=== PATIENT | female | born 1940 | race Caucasian/White ===

== ENCOUNTER 2016-03-13 20:52 | Inpatient (IN) | payer MEDICARE, OTHER ==
[~2016-03-13] VITALS: Ht 157.5 cm; Wt 77.9 kg
[~2016-03-13 20:52] MED LIST: ACET650T98 PO; ALLO100T PO; ENOX40DI12 SQ; HYDR-3720 PO; MAGN400O4 PO
[2016-03-13] MEDS ORDERED: HYDROCODONE/APAP (5/325) TAB PO ONE (21:30)
[2016-03-13] MEDS ORDERED: SODIUM CHLORIDE 0.9% 1L BAG IV* STA (21:31)
[2016-03-13] MEDS ORDERED: LEVE100018 PO (21:43)
[2016-03-13] MEDS ORDERED: AMLO2.5T78 PO (21:43)
[2016-03-13] MEDS ORDERED: ASPI-664 PO (21:44)
[2016-03-13] MEDS ORDERED: BACTDS PO (21:44)
--- NOTE | 2016-03-13 21:49 | RADRPT ---
PROCEDURE: XR Knee. CLINICAL INDICATION: Left knee pain. Status post fall. TECHNIQUE: Three views of the left knee are available for review. COMPARISON: Left knee postop x-ray dated 12/03/2014 FINDINGS: Left knee prosthesis is identified in anatomic location. No acute fracture or dislocation is seen. Alignment is anatomic. No other abnormality is identified. Lucency along the proximal tibial metaph ysis is stable when compared to the prior x-ray. Mild soft tissue swelling medial to the proximal t ibia is identified. IMPRESSION: 1. Left knee replacement in anatomic location. 2. No acute fracture or dislocation is seen. 3. Mild soft tissue swelling medial to the proximal tibia. RPTAT: HMJB .Rg Holguin MD, MD Date Time Electronically viewed and signed by .Rg Holguin MD, on 03/13/2016 21:49 .B/
[2016-03-13 22:38] LABS: ADD UMIC YES; URINE BILIRUBIN (Dip) NEGATIVE (NEGATIVE); URINE BLOOD (Dip) TRACE (NEGATIVE); URINE COLOR LT. YELLOW (YELLOW); URINE GLUCOSE (Dip) NEGATIVE (NEGATIVE); URINE KETONES (Dip) NEGATIVE (NEGATIVE); URINE LEUKOCYTE ESTERASE (Dip) 1+ (NEGATIVE); URINE NITRITE (Dip) NEGATIVE (NEGATIVE); URINE TOTAL PROTEIN (Dip) NEGATIVE (NEGATIVE); URINE UROBILINOGEN (Dip) 0.2 E.U./dL (0.1-1.0)
[2016-03-13 22:41] LABS: HEMATOCRIT 42.2 % (37.0-47.0); HEMOGLOBIN 14.1 g/dl (12.0-16.0); MEAN CORPUSCULAR HEMOGLOBIN 30.7 pg (29.0-33.0); MEAN CORPUSCULAR HGB CONC 33.5 g/dl (32.0-37.0); MEAN CORPUSCULAR VOLUME 91.8 fl (82.0-101.0); MEAN PLATELET VOLUME 7.5 fl (7.4-10.4); PLATELET COUNT 233 10^3/UL (140-440); RED CELL DISTRIBUTION WIDTH 14.2 % (11.5-14.5); UNCORRECTED WBC 21.4 10^3/ul (4.8-10.8); WHITE BLOOD COUNT 21.4 10^3/ul (4.8-10.8)
[2016-03-13 22:42] LABS: INR 0.95; PROTIME 12.7 Sec (12.2-14.2)
[2016-03-13 22:43] LABS: CONDITION 1; LH ANALYZER COMMENTS 1; PARTIAL THROMBOPLASTIN TIME 27.5 Sec (25.0-35.0); SUSPECT 1
[2016-03-13 22:48] LABS: ALBUMIN 4.3 g/dl (3.3-4.9)
[2016-03-13 22:49] LABS: POTASSIUM 3.7 mmol/L (3.5-5.1)
[2016-03-13 22:51] LABS: ALBUMIN/GLOBULIN RATIO 1.19; BILIRUBIN,INDIRECT 0.3 mg/dl (0-1.1); BILIRUBIN,TOTAL 0.3 mg/dl (0.2-1.3); CREATININE 0.77 mg/dl (0.44-1.00); TOTAL PROTEIN 7.9 g/dl (6.1-8.1)
[2016-03-13 22:52] LABS: CALCIUM 9.5 mg/dl (8.4-10.2)
[2016-03-13 22:54] LABS: BACTERIA,URINE RARE; SQUAMOUS EPITHELIAL CELL,UR RARE; URINE RBCS 0-2 /HPF (0)
[2016-03-13 23:09] LABS: LYMPHOCYTES # 0.6 10^3/ul (0.8-2.9); MONOCYTE # 0.9 10^3/ul (0.3-0.9); PLATELET ESTIMATE PLT APPEAR ADEQUATE
[2016-03-13] MEDS ORDERED: CEFTRIAXONE 1 GM/50 ML (PMX) 50 ML IVPB ONE (23:30)
[2016-03-13] MEDS ORDERED: VANCOMYCIN 1 GM (PMX) 250 ML IVPB SCH (23:30)
--- NOTE | 2016-03-13 23:37 | RADRPT ---
PROCEDURE: XR Chest. CLINICAL INDICATION: Chest pain and sepsis TECHNIQUE: AP Portable chest. COMPARISON: 02/09/2015 chest x-ray FINDINGS: The soft tissues and bones are remarkable for bilateral acromioclavicular and glenohumeral osteoarth ropathy. Low lung volumes are present with bilateral interstitial crowding and bibasilar discoid ate lectasis. The mediastinum and heart are remarkable for mild vascular calcifications of the thoracic aorta and mild cardiomegaly.. No pneumothorax is present. IMPRESSION: 1. Low lung volumes with bilateral interstitial crowding and bibasilar discoid atelectasis. 2. Mild atherosclerotic vascular disease and cardiomegaly 3. Mild thoracic spondylosis , bilateral glenohumeral osteoarthropathy and bilateral acromioclavicu lar osteoarthropathy. RPTAT: HDC .Iris Mera MD, Date Time Electronically viewed and signed by .Iris Mera MD, on 03/13/2016 23:36 .C/
[2016-03-14] MEDS ORDERED: ACETAMINOPHEN 325 MG TAB PO ONE (01:30)
[2016-03-14] MEDS ORDERED: morphine 2 MG INJ IV ONE (01:30)
[2016-03-14] MEDS ORDERED: ONDANSETRON 4 MG INJ ONE (02:04)
[2016-03-14] MEDS ORDERED: ACETAMINOPHEN 325 MG TAB PO PRN ×2 (03:30→06:30)
[2016-03-14] MEDS ORDERED: ONDANSETRON 4 MG INJ IV PRN (03:30)
[2016-03-14 03:40] VITALS: TEMP 98.2
--- NOTE | 2016-03-14 04:00 | ERA ---
ER Documentation Chief Complaint Date/Time DATE: 03/14/16 TIME: 03:40 Chief Complaint L knee pain r/t slipped from home, no fall HPI This 75-year-old female presents to the ER with left knee pain after she slipped at home. She did not fall to the ground however she did twist her knee. She has a history orthopedic surgery with Contreras Reyna as the treating physician. She has has some mild generalized weakness and lightheadedness. States that she's had significant chills and may have had subjective fevers as well. She feels very cold currently. Denies chest pain shortness of breath prior to the slip. ROS All systems reviewed and are negative except as per history of present illness. Medications Home Meds Reported Medications Aspirin (Low Dose Aspirin) 81 Mg Tablet.dr, 81 MG PO DAILY, #30 TAB 03/13/16 Sulfamethoxazole-Trimethoprim* (Bactrim* DS) 800-160 Mg Tab, 1 TAB PO DAILY, # 10 TAB 03/13/16 Amlodipine Besylate* (Amlodipine Besylate*) 2.5 Mg Tablet, 2.5 MG PO DAILY, #30 TAB 03/13/16 Levetiracetam* (Keppra*) 1,000 Mg Tablet, 1000 MG PO BID, TAB 03/13/16 Allopurinol* (Allopurinol*) 100 Mg Tablet, 200 MG PO DAILY, TAB 02/07/15 Discontinued Reported Medications Magnesium Hydroxide* (Milk Of Magnesia*) 400 Mg/5 Ml Oral.susp, 30 ML PO Q24H for CONSTIPATION, ML 02/07/15 Acetaminophen* (Acetaminophen* 8 Hour) 650 Mg Tablet.sa, 650 MG PO Q4 Y for PAIN AND OR ELEVATED TEMP, TAB.SA 02/07/15 Hydrocodone Bit-Acetaminophen* ([place]*) 7.5-325 Tablet, 1 TAB PO Q6 for PAIN, TAB 02/07/15 Enoxaparin Sodium (Enoxaparin Sodium) 40 Mg/0.4 Ml Syringe, 40 MG SQ DAILY 02/07/15 Allergies Allergies: Coded Allergies: Penicillins (Verified Allergy, Severe, RASH, 03/13/16) PMhx/Soc History of Surgery: Yes (post left knee surgery nov 2012) Hx Neurological Disorder: No Hx Respiratory Disorders: No (pt is currently intubated) Hx Cardiac Disorders: Yes (hpt) Hx Psychiatric Problems: No Hx Miscellaneous Medical Probl: No Hx Alcohol Use: No Hx Substance Use: No Hx Tobacco Use: No Smoking Status: Unknown if ever smoked Physical Exam Vitals Vital Signs Date Time Temp Pulse Resp B/P Pulse Ox O2 Delivery O2 Flow Rate FiO2 03/14/16 00:36 99.1 114 19 153/64 95 Room Air 03/13/16 23:00 105 18 152/73 97 03/13/16 22:30 104 18 148/63 97 03/13/16 22:01 111 20 137/105 94 03/13/16 21:30 105 15 136/80 98 03/13/16 21:23 106 138/68 03/13/16 20:54 97.6 108 18 139/76 94 Physical Exam Const: [] Mild distress, appears uncomfortable Head: Atraumatic Eyes: Normal Conjunctiva and EOMI, PRL ENT: Normal External Ears, Nose and Mouth. Neck: Full range of motion..~ No meningismus. Resp: Clear to auscultation bilaterally Cardio: regular tachycardia, no murmurs Abd: Soft, non tender, non distended. Normal bowel sounds Skin: No petechiae or rashes Back: No midline or flank tenderness Ext: No cyanosis, left knee with mild edema as well as 1.5 a 1 cm ulceration over the soft tissue of the patella that was covered in a Band-Aid with mild purulent material. There is very slight surrounding erythema and calor. Neur: Awake and alert and oriented 3, no focal deficits. Psych: Normal Mood and Affect Result Diagram: 03/13/16220903/13/16 2210 Results 24 hrs Laboratory Tests Test 03/13/16 22:10 03/13/16 23:25 03/14/16 01:50 Activated Partial Thromboplast Time 27.5Sec Alanine Aminotransferase (ALT/SGPT) 19IU/L Albumin 4.3g/dl Albumin/Globulin Ratio 1.19 Alkaline Phosphatase 115IU/L Anion Gap 18 Aspartate Amino Transf (AST/SGOT) 21IU/L Band Neutrophils % 4.0% Blood Urea Nitrogen 11mg/dl Calcium Level 9.5mg/dl Carbon Dioxide Level 26mmol/L Chloride Level 99mmol/L Creatinine 0.77mg/dl Direct Bilirubin 0.00mg/dl Globulin 3.60g/dl Glucose Level 108mg/dl Hematocrit 42.2% Hemoglobin 14.1g/dl INR International Normalized Ratio 0.95 Indirect Bilirubin 0.3mg/dl Lactic Acid Level 1.5mmol/L 1.0mmol/L 1.8mmol/L Lymphocytes # 0.610^3/ul Lymphocytes % 3.0% Mean Corpuscular Hemoglobin 30.7pg Mean Corpuscular Hemoglobin Concent 33.5g/dl Mean Corpuscular Volume 91.8fl Mean Platelet Volume 7.5fl Monocytes # 0.910^3/ul Monocytes % 4.0% Neutrophils # 19.010^3/ul Neutrophils % 89.0% Platelet Count 15962^3/UL Platelet Estimate PLT APPEAR ADEQUATE Potassium Level 3.7mmol/L Prothrombin Time 12.7Sec Prothrombin Time Ratio 1.0 Red Blood Count 4.6010^6/ul Red Cell Distribution Width 14.2% Sodium Level 139mmol/L Total Bilirubin 0.3mg/dl Total Protein 7.9g/dl Urine Bacteria RARE Urine Bilirubin NEGATIVE Urine Clarity CLEAR Urine Color LT. YELLOW Urine Glucose NEGATIVE% Urine Hemoglobin TRACE Urine Ketones NEGATIVE Urine Leukocyte Esterase 1+ Urine Microscopic RBC 0-2/HPF Urine Microscopic WBC 5-10/HPF Urine Nitrite NEGATIVE Urine Specific [place] 1.015 Urine Squamous Epithelial Cells RARE Urine Total Protein NEGATIVE Urine Urobilinogen 0.2 E.U./dL Urine pH 5.5 White Blood Count 21.410^3/ul Current Medications Medications (Trade) Dose Ordered Sig/Andres Route PRN Reason Start Time Stop Time Status Last Admin Dose Admin Acetaminophen/ Hydrocodone Bitart ([place] (5/325)) 1 tab ONCE ONCE PO 03/13/16 21:30 03/13/16 21:31 DC Sodium Chloride 2270 ml 2,270 ml BOLUS OVER 2 HOURS STAT IV* 03/13/16 21:31 03/13/16 21:33 DC 03/13/16 22:28 Ceftriaxone Sodium 50 ml @ 100 mls/hr ONCE ONCE IVPB 03/13/16 23:30 03/13/16 23:59 DC 03/13/16 23:06 Vancomycin HCl (Vancocin) 250 ml @ 125 mls/hr ONCE IVPB 03/13/16 23:30 03/14/16 01:29 DC 03/14/16 00:20 Acetaminophen (Tylenol Tab) 650 mg ONCE ONCE PO 03/14/16 01:30 03/14/16 01:31 DC 03/14/16 01:23 Morphine Sulfate (morphine) 2 mg ONCE ONCE IV 03/14/16 01:30 03/14/16 01:31 DC 03/14/16 02:07 Ondansetron HCl (Zofran Inj) 4 mg STK-MED ONCE .ROUTE 03/14/16 02:04 03/14/16 02:05 DC Ondansetron HCl (Zofran Inj) 4 mg ER BRIDGE PRN IV NAUSEA AND/OR VOMITING 03/14/16 03:30 03/15/16 03:29 Acetaminophen (Tylenol Tab) 650 mg ER BRIDGE PRN PO MILD PAIN/FEVER 03/14/16 03:30 03/15/16 03:29 Procedures/MDM UTI with sepsis and 75-year-old female. Persistent tachycardia after fluid administration over blood pressures is stable. Patient twisted her left knee and now has recurred difficulty ambulating on it and lives alone. She has a chronic ulceration that she says has not changed much. Her sepsis may be related to some soft tissue cellulitis that is been chronic. Patient is on chronic Bactrim for this ulceration. I have low suspicion for septic joint as the patient did not have any change in her knee status until she twisted her knee. Treated with vancomycin and Rocephin for her sepsis. The sepsis diagnosis was made at 1044 after the labs returned with a very high white blood cell count. Admitting her to telemetry because of her persistent tachycardia for treatment of sepsis. She also likely need physical therapy consult and possibly a knee MRI. I spoke with Dr. Asher who will be admitting the patient to telemetry. 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 No other arrhythmias Chest x-ray interpretation: I see no acute process. No widened mediastinum, no infiltrate, no pulmonary edema, no pneumothorax, no fractures Left knee interpretation by myself: See no acute process: The hardware in place , degenerative joint disease, no acute fracture dislocation. Critical care time 32 minutes: This includes treatment of sepsis from multiple sources, careful fluid and menstruation, early antibiotic administration, chart review, discussion with admitting doctor and patient, multiple visits the patient's bedside to reassess status Departure Diagnosis: Primary Impression: Sepsis secondary to UTI Additional Impressions: Strain of knee and leg, left Tachycardia Cellulitis, leg Condition: Serious ROBERT DOVE DO Mar 14, 2016 03:51
[2016-03-14 05:30] VITALS: Ht 157.5 cm; Wt 77.9 kg
[2016-03-14 05:46] VITALS: BP 118/55; PULSE 94; RESP 20
--- NOTE | 2016-03-14 05:55 | HP ---
Date/Time of Note Date/Time of Note DATE: 03/14/16 TIME: 05:24 Assessment/Plan VTE Prophylaxis VTE Prophylaxis Intervention: LMWH Lines/Catheters Urinary Cath still in place: Yes Reason Cath still needed: other (indicate) Assessment/Plan Assessment/Plan 75yo s/p loss of balance with no loss of consciousness managed for 1. Sepsis 2/2 the following 2. L knee cellulitis r/o septic joint 3. Probable UTI 4. HTN: fairly good controlled 5. Seizure Episode on keppra 6. Gout: controlled PLAN admit / Orthopedic consult / cultures of blood, synovial fluid and urine. Patient would benefit from Knee tap prior to continuation of abx, I have spoken with Dr Reyna and he agrees, but she has refused anyone else tapping the knee apart from Dr Reyna. I have explained the reason for this and the benefits, but she is adamant. Hence will continue Empiric abx for now, await Ortho review and recommendations. In the interim, resume all other home meds, and provide pain control/ antiemetics/ antipyretics/ supportive care as needed. Prophylaxis: Lovenox and Pepcid Plan of care has been discussed with patient, questions answered and patient has verbalized understanding. HPI/ROS Admit Date/Time Admit Date/Time Mar 14, 2016 at 03:26 Hx of Present Illness PRESENTING COMPLAINT: fall, inability to walk HISTORY OF PRESENTING COMPLAINT: Eliud Momin is a 75-year-old female with a past medical history of high blood pressure, seizure disorder and bilateral knee replacements. 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 She had had right knee done back in 2012, and had left knee done sometime in 2014. She had to have a revision to the left knee with mesh placement done by Dr. Jose L Reyna in late 2014. She has been on Bactrim therapy since the surgery, however she states this was given prophylactically and does not think she has ever had an infection to her L knee. She does have a chronic wound just above the joint and in her mid leg, but she says this is being closely monitored by Dr Reyna. Earlier today, she was sitting in a chair and about to stand up with her walker as she usually does when she thinks her foot got caught and she fell back in her chair twisting her knee. She was unable to ambulate after that and hence she was brought to ER. In ER she was found to be mildly septic with significant leucocytosis with bandemia and tachycardic with subjective chills, but she has been on chronic abx therapy which might be blunting her symptoms. Her urine was also mildly suggestive of an infection. She is being admitted for further workup and management. The patient is adamant that no other orthopedic surgeon review her except Dr Reyna and will have only him tap her joint as well. ROS Constitutional: chills, fatigue, No nausea, No poor po Eyes: no complaints ENT: no complaints Cardiovascular: No chest pain, No lightheadedness, No palpitations Gastrointestinal: no complaints Musculoskeletal: bone/joint pain, restricted range of motion, swelling Psychological: anxiety PMH/Family/Social Past Medical History * seizure x 13 jan 2015 on keppra * Gout Medical History: hypertension Past Surgical History * Apollo Knee replacement + revision L knee Family History Significant Family History: no pertinent family hx Social History * Lives alone Alcohol Use: none Smoking Status: Never smoker Drug Use: none Exam/Review of Systems Vital Signs Vitals Vital Signs Date Time Temp Pulse Resp B/P Pulse Ox O2 Delivery O2 Flow Rate FiO2 03/14/16 03:40 98.2 98 16 129/69 97 Room Air Exam Constitutional: alert, oriented Psych: anxiety Head: atraumatic, normocephalic Eyes: PERRL, No icteric ENMT: mucosa pink and moist Neck: non-tender, supple Respiratory: clear to auscultation, normal air movement Cardiovascular: regular rate and rhythm, No murmurs/extra sounds Gastrointestinal: bowel sounds, non-tender, soft Genitourinary - Female: other (deffered) Neurological: nl mental status, nl speech, No focal weakness Additional Comments Her L knee is slightly more swollen than the R with overlying cellulitis and the presence of a scabbed wound just superiomedial to the patellar. She has another wound anterior to the hanks in the mid leg on the L as well. There's no significant pedal edema and she has pain with active / passive movement of the LLE only. At rest, she is somewhat comfortable. Labs Result Diagram: 03/13/16220903/13/162209 Medications Medications Current Medications Allopurinol (Zyloprim) 200 mg DAILY PO ; Start 03/14/16 at 09:00 Amlodipine Besylate (Norvasc) 2.5 mg DAILY PO ; Start 03/14/16 at 09:00 Aspirin (Halfprin) 81 mg DAILY PO ; Start 03/14/16 at 09:00 Levetiracetam (Keppra) 1,000 mg BID PO ; Start 03/14/16 at 09:00 Procedures Procedures Laboratory Tests Test 03/13/16 22:10 03/13/16 23:25 03/14/16 01:50 Activated Partial Thromboplast Time 27.5Sec Alanine Aminotransferase (ALT/SGPT) 19IU/L Albumin 4.3g/dl Albumin/Globulin Ratio 1.19 Alkaline Phosphatase 115IU/L Anion Gap 18 Aspartate Amino Transf (AST/SGOT) 21IU/L Band Neutrophils % 4.0% Blood Urea Nitrogen 11mg/dl Calcium Level 9.5mg/dl Carbon Dioxide Level 26mmol/L Chloride Level 99mmol/L Creatinine 0.77mg/dl Direct Bilirubin 0.00mg/dl Globulin 3.60g/dl Glucose Level 108mg/dl Hematocrit 42.2% Hemoglobin 14.1g/dl INR International Normalized Ratio 0.95 Indirect Bilirubin 0.3mg/dl Lactic Acid Level 1.5mmol/L 1.0mmol/L 1.8mmol/L Lymphocytes # 0.610^3/ul Lymphocytes % 3.0% Mean Corpuscular Hemoglobin 30.7pg Mean Corpuscular Hemoglobin Concent 33.5g/dl Mean Corpuscular Volume 91.8fl Mean Platelet Volume 7.5fl Monocytes # 0.910^3/ul Monocytes % 4.0% Neutrophils # 19.010^3/ul Neutrophils % 89.0% Platelet Count 06430^3/UL Platelet Estimate PLT APPEAR ADEQUATE Potassium Level 3.7mmol/L Prothrombin Time 12.7Sec Prothrombin Time Ratio 1.0 Red Blood Count 4.6010^6/ul Red Cell Distribution Width 14.2% Sodium Level 139mmol/L Total Bilirubin 0.3mg/dl Total Protein 7.9g/dl Urine Bacteria RARE Urine Bilirubin NEGATIVE Urine Clarity CLEAR Urine Color LT. YELLOW Urine Glucose NEGATIVE% Urine Hemoglobin TRACE Urine Ketones NEGATIVE Urine Leukocyte Esterase 1+ Urine Microscopic RBC 0-2/HPF Urine Microscopic WBC 5-10/HPF Urine Nitrite NEGATIVE Urine Specific [place] 1.015 Urine Squamous Epithelial Cells RARE Urine Total Protein NEGATIVE Urine Urobilinogen 0.2 E.U./dL Urine pH 5.5 White Blood Count 21.410^3/ul PROCEDURE: XR Knee. CLINICAL INDICATION: Left knee pain. Status post fall. TECHNIQUE: Three views of the left knee are available for review. COMPARISON: Left knee postop x-ray dated 12/03/2014 FINDINGS: Left knee prosthesis is identified in anatomic location. No acute fracture or dislocation is seen. Alignment is anatomic. No other abnormality is identified. Lucency along the proximal tibial metaphysis is stable when compared to the prior x-ray. Mild soft tissue swelling medial to the proximal tibia is identified. IMPRESSION: 1. Left knee replacement in anatomic location. 2. No acute fracture or dislocation is seen. 3. Mild soft tissue swelling medial to the proximal tibia. RPTAT: HMJB .Rg Holguin MD, MD Date Time Electronically viewed and signed by .Rg Holguin MD, on 03/13/2016 21:49 PROCEDURE: XR Chest. CLINICAL INDICATION: Chest pain and sepsis TECHNIQUE: AP Portable chest. COMPARISON: 02/09/2015 chest x-ray FINDINGS: The soft tissues and bones are remarkable for bilateral acromioclavicular and glenohumeral osteoarthropathy. Low lung volumes are present with bilateral interstitial crowding and bibasilar discoid atelectasis. The mediastinum and heart are remarkable for mild vascular calcifications of the thoracic aorta and mild cardiomegaly.. No pneumothorax is present. IMPRESSION: 1. Low lung volumes with bilateral interstitial crowding and bibasilar discoid atelectasis. 2. Mild atherosclerotic vascular disease and cardiomegaly 3. Mild thoracic spondylosis , bilateral glenohumeral osteoarthropathy and bilateral acromioclavicular osteoarthropathy. RPTAT: HDC .Iris Mera MD, Date Time Electronically viewed and signed by .Iris Mera MD, on 03/13/2016 23: 36 GUALBERTO SOLANO Mar 14, 2016 05:35
[2016-03-14] MEDS ORDERED: HYDROCODONE/APAP (5/325) TAB PO PRN (06:00)
[2016-03-14] MEDS ORDERED: VANCOMYCIN IV PER PHARMACY XX SCH (06:00)
[2016-03-14 08:00] VITALS: BP 120/57; PULSE 94; RESP 16
[2016-03-14 08:10] LABS: POTASSIUM 3.8 mmol/L (3.5-5.1)
[2016-03-14 08:12] LABS: CREATINE KINASE 74 IU/L (23-200)
[2016-03-14 08:13] LABS: CREATININE 0.57 mg/dl (0.44-1.00)
[2016-03-14 08:14] LABS: CALCIUM 8.3 mg/dl (8.4-10.2)
[2016-03-14 08:23] LABS: CK-MB 0.34 ng/ml (0.0-2.4)
[2016-03-14 08:31] LABS: TROPONIN-I < 0.012 ng/ml (0.00-0.12)
[2016-03-14] MEDS: FAMOTIDINE 20 MG TAB PO SCH (08:58)
[2016-03-14] MEDS: DOCUSATE SODIUM 100 MG CAP PO SCH ×2 (08:58→20:17)
[2016-03-14] MEDS: ALLOPURINOL 100 MG TAB PO SCH (08:58)
[2016-03-14] MEDS: LEVETIRACETAM 500 MG TAB PO SCH ×2 (08:58→20:17)
[2016-03-14] MEDS: AMLODIPINE 2.5 MG TAB PO SCH (08:59)
[2016-03-14] MEDS ORDERED: ASPIRIN (EC) 81 MG TAB PO SCH (09:00)
[2016-03-14] MEDS ORDERED: CIPROFLOXACIN 400MG/D5W 200 ML IVPB SCH (09:00)
[2016-03-14] MEDS ORDERED: ENOXAPARIN 40 MG/0.4 ML SYG SC SCH (09:00)
[2016-03-14] MEDS: morphine 2 MG INJ IV PRN ×2 (09:29→16:09)
[2016-03-14] MEDS ORDERED: CEFTRIAXONE 2 GM/50 ML (PMX) 50 ML IVPB SCH (11:00)
--- NOTE | 2016-03-14 13:56 | PN ---
Date/Time of Note Date/Time of Note DATE: 03/14/16 TIME: 13:51 Assessment/Plan VTE Prophylaxis VTE Prophylaxis Intervention: other Lines/Catheters IV Catheter Type (from Nrsg): Peripheral IV Urinary Cath still in place: Yes Reason Cath still needed: skin wounds contaminated by urine Assessment/Plan Chief Complaint/Hosp Course A/P 1) Lt knee cellulitis; ro septic joint; stable. for ortho & id eval. cont iv atb; hold asa/lovenox for potential aspiration. 2) Chr DJD? 3) Seizure dz 4) SIRS 5) Gout- consider acute process 6) Lt hanks chr wound 7) Htn Problems: Subjective 24 Hr Interval Summary Free Text/Dictation S- anxious, wants to be transferred to [facility] [place] no present fever/chills. mod lt knee pain. Exam/Review of Systems Vital Signs Vitals Vital Signs Date Time Temp Pulse Resp B/P Pulse Ox O2 Delivery O2 Flow Rate FiO2 03/14/16 08:00 98.0 94 16 120/57 94 03/14/16 03:40 Room Air Intake and Output 03/13/16 03/13/16 03/14/16 15:00 23:00 07:00 Intake Total 240 ml Output Total 1250 ml Balance -1010 ml Exam Constitutional: alert Respiratory: clear to auscultation Cardiovascular: regular rate and rhythm Gastrointestinal: non-tender (nd; no r r g), soft Extremities: other (lt leg -tender knee joint line; some edema. minimal warmth. diminshed rom.) Results Result Diagram: 03/13/16 2210 03/14/16 0635 Results 24 hrs Laboratory Tests Test 03/13/16 22:10 03/13/16 23:25 03/14/16 01:50 03/14/16 06:35 Activated Partial Thromboplast Time 27.5 Alanine Aminotransferase (ALT/SGPT) 19 Albumin 4.3 Albumin/Globulin Ratio 1.19 Alkaline Phosphatase 115 Anion Gap 18 H 17 H Aspartate Amino Transf (AST/SGOT) 21 Band Neutrophils % 4.0 Blood Urea Nitrogen 11 9 Calcium Level 9.5 8.3 L Carbon Dioxide Level 26 24 Chloride Level 99 108 Creatinine 0.77 0.57 Direct Bilirubin 0.00 Globulin 3.60 H Glucose Level 108 93 Hematocrit 42.2 # Hemoglobin 14.1 # INR International Normalized Ratio 0.95 Indirect Bilirubin 0.3 Lactic Acid Level 1.5 1.0 1.8 Lymphocytes # 0.6 L Lymphocytes % 3.0 L Mean Corpuscular Hemoglobin 30.7 Mean Corpuscular Hemoglobin Concent 33.5 Mean Corpuscular Volume 91.8 Mean Platelet Volume 7.5 Monocytes # 0.9 Monocytes % 4.0 Neutrophils # 19.0 H Neutrophils % 89.0 H Platelet Count 233 # Platelet Estimate PLT APPEAR ADEQUATE Potassium Level 3.7 3.8 Prothrombin Time 12.7 Prothrombin Time Ratio 1.0 Red Blood Count 4.60 # Red Cell Distribution Width 14.2 Sodium Level 139 145 H Total Bilirubin 0.3 Total Protein 7.9 Urine Bacteria RARE Urine Bilirubin NEGATIVE Urine Clarity CLEAR Urine Color LT. YELLOW Urine Glucose NEGATIVE Urine Hemoglobin TRACE Urine Ketones NEGATIVE Urine Leukocyte Esterase 1+ H Urine Microscopic RBC 0-2 Urine Microscopic WBC 5-10 Urine Nitrite NEGATIVE Urine Specific [place] 1.015 Urine Squamous Epithelial Cells RARE Urine Total Protein NEGATIVE Urine Urobilinogen 0.2 E.U./dL Urine pH 5.5 White Blood Count 21.4 #H Creatine Kinase 74 Creatine Kinase Index 0.5 Creatinine Kinase MB (Mass) 0.34 Magnesium Level 1.7 Troponin I < 0.012 Medications Medications Current Medications Allopurinol (Zyloprim) 200 mg DAILY PO Last administered on 03/14/16 08:58; Admin Dose 200 MG; Start 03/14/16 at 09:00 Amlodipine Besylate (Norvasc) 2.5 mg DAILY PO Last administered on 03/14/16at 08:59; Admin Dose 2.5 MG; Start 03/14/16 at 09:00 Aspirin (Halfprin) 81 mg DAILY PO Last administered on 03/14/16 08:57; Admin Dose 81 MG; Start 03/14/16 at 09:00 Levetiracetam 1000 mg 1,000 mg BID PO Last administered on 03/14/16 08:58; Admin Dose 1,000 MG; Start 03/14/16 at 09:00 Ceftriaxone Sodium 50 ml @ 100 mls/hr Q24H IVPB Last administered on 10:57; Admin Dose 100 MLS/HR; Start 03/14/16 at 11:00 Ciprofloxacin/ Dextrose (Cipro Ivpb) 200 ml @ 200 mls/hr Q12 IVPB Last administered on 12/31/16at 08:57; Admin Dose 200 MLS/HR; Start 03/14/16 at 09: 00 Enoxaparin Sodium (Lovenox) 40 mg DAILY SC Last administered on 03/14/16at 09: 23; Admin Dose 40 MG; Start 03/14/16 at 09:00 Famotidine (Pepcid) 20 mg DAILY PO Last administered on 03/14/16at 08:58; Admin Dose 20 MG; Start 03/14/16 at 09:00 Morphine Sulfate (morphine) 2 mg Q4H PRN IV pain Last administered on at 09:29; Admin Dose 2 MG; Start 03/14/16 at 06:00 Acetaminophen/ Hydrocodone Bitart ([place] (5/325)) 1 tab Q6H PRN PO pain; Start 03/14/16 at 06:00 Docusate Sodium (Colace) 100 mg BID PO Last administered on 03/14/16at 08:58; Admin Dose 100 MG; Start 03/14/16 at 09:00 Acetaminophen 650 mg 650 mg Q6H PRN PO PAIN AND OR ELEVATED TEMP; Start at 06:30 Vancomycin HCl (Vancocin) 250 ml @ 125 mls/hr Q24H IVPB ; Start 03/14/16 at 18 :00 AMANDA CARRASQUILLO MD Mar 14, 2016 13:56
[2016-03-14] MEDS ORDERED: HYDROCODONE/APAP (10/325) TAB PO PRN (14:00)
[2016-03-14] MEDS ORDERED: ACET325T33 PO (14:14)
--- NOTE | 2016-03-14 16:45 | CONS ---
Date/Time of Note Date/Time of Note DATE: 03/14/16 TIME: 16:32 Assessment/Plan Assessment/Plan Additional Assessment/Plan Assessment: 1. Complicated orthopedic repair of left TKR. Uncertain if there is a chronic infection in the hardware given the use of chronic bactrim suppression therapy. It is unlikely that this represents an acute infection because of the rapidity of onset and the paucity of findings on physical exam to support a rapidly progressive infection. It is more likely that the joint has suffered trauma from the twisting action during the fall, rather than a new acute infection. I cannot rule out an exacerbation of chronic infection. Clearly the joint needs to be tapped for culture, WBC, etc. Evaluation by orthopedics is also required. Temperature to 99 last night is likely due to the inflammation rather than infection. 2. Patient is without symptoms of UTI. She is not likely to have this. 3. Seizure d/o on Keppra. 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 Will avoid for now, if need coverage for resistant GPC we can use daptomycin. RECOMMENDATIONS: 1. Would suggest discontinuation of antibiotics at this time. 2. Needs aspiration of joint for CBC with diff and culture as soon as is feasible 3. Needs evaluation by orthopedics; can obtain MRI pending evaluation. 4. Monitor clinically off antibiotics overnight. 5. Follow-up on pending blood cultures. Consultation Date/Type/Reason Admit Date/Time Mar 14, 2016 at 03:26 Date of Consultation: Mar 14, 2016 Type of Consultation: Infectious Diseases Reason for Consultation Possible Septic Joint Hx of Present Illness Ms Kline is a 75y/o female with bilateral knee replacements who was admitted after potentially injuring her left knee. The patient had a complicated left knee surgical history with the original TKR resulting in tear then a mesh repair of some sort was completed this year. The patient was progressing well apparently and the day prior to admission walked and worked with PT for over an hour; the most she had in some time. The next day she was not sore and there were no new issues. In the evening she got up from her chair and fell back into it after tripping on the walker and twisted her knee while doing so. She was BIB ambulance to the ED and there was concern for an infection. Per the patient she has been on bactrim since the repair surgery. it is not clear if an infection was found, presumed or just concern for it with the hardware. She notes intermittent drainage from the knee that is generally brown. This has been followed by Dr. Reyna her orthopedist and apparently no significant concern for infection. The knee is painful now and swollen. There is more pain than normal. The patient denies N, V, D, HALL, myalgia, arthralgia, complaints , back pain. Negative on a 14 point review of systems except as noted in the HPI Eyes: no complaints ENT: no complaints Cardiovascular: No chest pain, No lightheadedness, No palpitations Gastrointestinal: no complaints Musculoskeletal: bone/joint pain, restricted range of motion, swelling Psychological: anxiety Past Medical History gout, no recent activity Medical History: hypertension Past Surgical History As per HPI Family History Significant Family History: no pertinent family hx Social History Alcohol Use: none Smoking Status: Never smoker Drug Use: none Exam/Review of Systems Vital Signs Vitals Vital Signs Date Time Temp Pulse Resp B/P Pulse Ox O2 Delivery O2 Flow Rate FiO2 03/14/16 08:00 98.0 94 16 120/57 94 03/14/16 03:40 Room Air Intake and Output 03/13/16 03/13/16 03/14/16 15:00 23:00 07:00 Intake Total 240 ml Output Total 1250 ml Balance -1010 ml Exam Constitutional: alert, oriented, well developed Psych: nl mood/affect, no complaints Head: atraumatic, normocephalic Eyes: EOMI, PERRL, nl conjunctiva, nl lids, nl sclera ENMT: nl external ears & nose, nl lips & teeth, nl nasal mucosa & septum Neck: non-tender, supple Respiratory: clear to auscultation, normal air movement Cardiovascular: nl pulses, regular rate and rhythm Gastrointestinal: nl liver, spleen, non-tender, soft Genitourinary - Female: other (sanchez present) Extremities: edema (RLE), normal pulses Neurological: CORPORATE TREASURY ANALYST II-XII intact, nl mental status, nl speech, nl strength Lymph: nl lymph nodes Additional Comments RLE with normal appearing surgical incision and with good ROM w/o pain. LLE with fluid in knee joint and warmth of joint, but no significant erythema. There is pain extending medially and superiorly that patient states is normal, but knee pain is worse than normal. A large scab has come off of the patellar region and there is some fibrinous exudate in the area where it was, but there is no discharge. No crepitus and no fluctuance within the soft tissue is appreciated. Unable to walk at this time due to pain Results Result Diagram: 03/13/16 2210 03/14/16 0635 Results 24 hrs Laboratory Tests Test 03/13/16 22:10 03/13/16 23:25 03/14/16 01:50 03/14/16 06:35 Activated Partial Thromboplast Time 27.5 Alanine Aminotransferase (ALT/SGPT) 19 Albumin 4.3 Albumin/Globulin Ratio 1.19 Alkaline Phosphatase 115 Anion Gap 18 H 17 H Aspartate Amino Transf (AST/SGOT) 21 Band Neutrophils % 4.0 Blood Urea Nitrogen 11 9 Calcium Level 9.5 8.3 L Carbon Dioxide Level 26 24 Chloride Level 99 108 Creatinine 0.77 0.57 Direct Bilirubin 0.00 Globulin 3.60 H Glucose Level 108 93 Hematocrit 42.2 # Hemoglobin 14.1 # INR International Normalized Ratio 0.95 Indirect Bilirubin 0.3 Lactic Acid Level 1.5 1.0 1.8 Lymphocytes # 0.6 L Lymphocytes % 3.0 L Mean Corpuscular Hemoglobin 30.7 Mean Corpuscular Hemoglobin Concent 33.5 Mean Corpuscular Volume 91.8 Mean Platelet Volume 7.5 Monocytes # 0.9 Monocytes % 4.0 Neutrophils # 19.0 H Neutrophils % 89.0 H Platelet Count 233 # Platelet Estimate PLT APPEAR ADEQUATE Potassium Level 3.7 3.8 Prothrombin Time 12.7 Prothrombin Time Ratio 1.0 Red Blood Count 4.60 # Red Cell Distribution Width 14.2 Sodium Level 139 145 H Total Bilirubin 0.3 Total Protein 7.9 Urine Bacteria RARE Urine Bilirubin NEGATIVE Urine Clarity CLEAR Urine Color LT. YELLOW Urine Glucose NEGATIVE Urine Hemoglobin TRACE Urine Ketones NEGATIVE Urine Leukocyte Esterase 1+ H Urine Microscopic RBC 0-2 Urine Microscopic WBC 5-10 Urine Nitrite NEGATIVE Urine Specific [place] 1.015 Urine Squamous Epithelial Cells RARE Urine Total Protein NEGATIVE Urine Urobilinogen 0.2 E.U./dL Urine pH 5.5 White Blood Count 21.4 #H Creatine Kinase 74 Creatine Kinase Index 0.5 Creatinine Kinase MB (Mass) 0.34 Magnesium Level 1.7 Troponin I < 0.012 Medications Medications Current Medications Allopurinol (Zyloprim) 200 mg DAILY PO Last administered on 03/14/16at 08:58; Admin Dose 200 MG; Start 03/14/16 at 09:00 Amlodipine Besylate (Norvasc) 2.5 mg DAILY PO Last administered on 03/14/16 08:59; Admin Dose 2.5 MG; Start 03/14/16 at 09:00 Levetiracetam 1000 mg 1,000 mg BID PO Last administered on 03/14/16 08:58; Admin Dose 1,000 MG; Start 03/14/16 at 09:00 Ceftriaxone Sodium 50 ml @ 100 mls/hr Q24H IVPB Last administered on 10:57; Admin Dose 100 MLS/HR; Start 03/14/16 at 11:00 Ciprofloxacin/ Dextrose (Cipro Ivpb) 200 ml @ 200 mls/hr Q12 IVPB Last administered on 03/14/16 08:57; Admin Dose 200 MLS/HR; Start 03/14/16 at 09: 00 Famotidine (Pepcid) 20 mg DAILY PO Last administered on 03/14/16 08:58; Admin Dose 20 MG; Start 03/14/16 at 09:00 Morphine Sulfate (morphine) 2 mg Q4H PRN IV pain Last administered on 16:09; Admin Dose 2 MG; Start 03/14/16 at 06:00 Docusate Sodium (Colace) 100 mg BID PO Last administered on 03/14/16 08:58; Admin Dose 100 MG; Start 03/14/16 at 09:00 Acetaminophen 650 mg 650 mg Q6H PRN PO PAIN AND OR ELEVATED TEMP; Start at 06:30 Vancomycin HCl (Vancocin) 250 ml @ 125 mls/hr Q24H IVPB ; Start 03/14/16 at 18 :00 Acetaminophen/ Hydrocodone Bitart ([place] (10/325)) 1 tab Q4H PRN PO PAIN; Start 03/14/16 at 14:00 FIOR JEFF Mar 14, 2016 16:44
[2016-03-14] MEDS ORDERED: VANCOMYCIN 1 GM in NS 250 ML IVPB SCH (18:00)
[2016-03-14 20:05] VITALS: BP 113/56; PULSE 91; RESP 20
[2016-03-15 06:16] LABS: BASOPHILS % 0.2 % (0.0-2.0); EOSINOPHILS # 0.1 10^3/ul (0.0-0.5); EOSINOPHILS % 0.7 % (0.0-7.0); HEMATOCRIT 35.3 % (37.0-47.0); LYMPHOCYTES # 1.5 10^3/ul (0.8-2.9); LYMPHOCYTES % 12.1 % (15.0-51.0); MEAN CORPUSCULAR HEMOGLOBIN 31.3 pg (29.0-33.0); MEAN CORPUSCULAR HGB CONC 33.9 g/dl (32.0-37.0); MEAN CORPUSCULAR VOLUME 92.3 fl (82.0-101.0); MEAN PLATELET VOLUME 7.7 fl (7.4-10.4); MONOCYTES % 7.8 % (0.0-11.0); NEUTROPHIL # 10.1 10^3/ul (1.6-7.5); NEUTROPHILS % 79.2 % (39.0-77.0); PLATELET COUNT 213 10^3/UL (140-440); RED BLOOD COUNT 3.83 10^6/ul (4.20-5.40); RED CELL DISTRIBUTION WIDTH 14.7 % (11.5-14.5); UNCORRECTED WBC 12.7 10^3/ul (4.8-10.8); WHITE BLOOD COUNT 12.7 10^3/ul (4.8-10.8)
[2016-03-15 06:18] LABS: PHOSPHORUS 3.3 mg/dl (2.5-4.9)
[2016-03-15 06:19] LABS: MAGNESIUM 1.8 mg/dl (1.7-2.5)
[2016-03-15 06:20] LABS: POTASSIUM 3.5 mmol/L (3.5-5.1)
[2016-03-15 06:23] LABS: CALCIUM 8.8 mg/dl (8.4-10.2); CREATININE 0.65 mg/dl (0.44-1.00)
[2016-03-15 06:50] LABS: THYROID STIMULATING HORMONE 1.16 MIU/L (0.465-4.680)
[2016-03-15 07:00] LABS: CONDITION 1; LH ANALYZER COMMENTS 1
[2016-03-15 07:47] VITALS: BP 113/58; RESP 20
[2016-03-15] MEDS: ALLOPURINOL 100 MG TAB PO SCH (08:17)
[2016-03-15] MEDS: DOCUSATE SODIUM 100 MG CAP PO SCH ×2 (08:18→20:54)
[2016-03-15] MEDS: FAMOTIDINE 20 MG TAB PO SCH (08:19)
[2016-03-15] MEDS: LEVETIRACETAM 500 MG TAB PO SCH ×2 (08:19→20:52)
[2016-03-15] MEDS: AMLODIPINE 2.5 MG TAB PO SCH (08:20)
[2016-03-15] MEDS: morphine 2 MG INJ IV PRN ×2 (09:41→21:04)
--- NOTE | 2016-03-15 11:00 | PN ---
Date/Time of Note Date/Time of Note DATE: 03/15/16 TIME: 10:57 Assessment/Plan VTE Prophylaxis VTE Prophylaxis Intervention: contraindicated (hold for aspiration) Lines/Catheters IV Catheter Type (from Nrsg): Peripheral IV Urinary Cath still in place: Yes Reason Cath still needed: skin wounds contaminated by urine Assessment/Plan Chief Complaint/Hosp Course A/P 1) Lt knee cellulitis; ro septic joint; stable. Transfer to higher level of care- w ho Lt tka, may need joint revision; unable to do here. [place] [facility] [place] Reyn[place]/ et al. Cont iv atb; hold asa/lovenox for potential aspiration. 2) Chr DJD? 3) Seizure dz 4) SIRS 5) Gout- consider acute process 6) Lt hanks chr wound 7) Htn Problems: Subjective 24 Hr Interval Summary Free Text/Dictation S- events noted. no toxicity; pain remains. Exam/Review of Systems Vital Signs Vitals Vital Signs Date Time Temp Pulse Resp B/P Pulse Ox O2 Delivery O2 Flow Rate FiO2 03/15/16 07:47 98.3 94 20 113/58 95 03/14/16 03:40 Room Air Intake and Output 03/14/16 03/14/16 03/15/16 15:00 23:00 07:00 Intake Total 250 ml 1140 ml 240 ml Output Total 1400 ml 450 ml Balance 250 ml -260 ml -210 ml Exam Constitutional: alert Respiratory: clear to auscultation Cardiovascular: regular rate and rhythm Gastrointestinal: non-tender, soft Musculoskeletal: other (mild erythema, tenderness @ lt knee w diminished rom.) Results Result Diagram: 03/15/16 0500 03/15/16 0500 Results 24 hrs Laboratory Tests Test 03/15/16 05:00 Anion Gap 15 Basophils # 0.0 Basophils % 0.2 Blood Morphology Comment Blood Urea Nitrogen 9 Calcium Level 8.8 Carbon Dioxide Level 26 Chloride Level 104 Creatinine 0.65 Eosinophils # 0.1 Eosinophils % 0.7 Glucose Level 98 Hematocrit 35.3 L Hemoglobin 12.0 Hemoglobin A1c 5.0 Lymphocytes # 1.5 Lymphocytes % 12.1 L Magnesium Level 1.8 Mean Corpuscular Hemoglobin 31.3 Mean Corpuscular Hemoglobin Concent 33.9 Mean Corpuscular Volume 92.3 Mean Platelet Volume 7.7 Monocytes # 1.0 H Monocytes % 7.8 Neutrophils # 10.1 H Neutrophils % 79.2 H Nucleated Red Blood Cells # 0.0 Nucleated Red Blood Cells % 0.0 Phosphorus Level 3.3 Platelet Count 213 Potassium Level 3.5 Red Blood Count 3.83 L Red Cell Distribution Width 14.7 H Sodium Level 141 Thyroid Stimulating Hormone (TSH) 1.160 White Blood Count 12.7 #H Medications Medications Current Medications Allopurinol (Zyloprim) 200 mg DAILY PO Last administered on 03/15/16 08:17; Admin Dose 200 MG; Start 03/14/16 at 09:00 Amlodipine Besylate (Norvasc) 2.5 mg DAILY PO Last administered on 03/15/16 08: 20; Admin Dose 2.5 MG; Start 03/14/16 at 09:00 Levetiracetam (Keppra) 1,000 mg BID PO Last administered on 03/15/16 08:19; Admin Dose 1,000 MG; Start 03/14/16 at 09:00 Famotidine (Pepcid) 20 mg DAILY PO Last administered on 03/15/16 08:19; Admin Dose 20 MG; Start 03/14/16 at 09:00 Morphine Sulfate (morphine) 2 mg Q4H PRN IV pain Last administered on 03/15/16 09:41; Admin Dose 2 MG; Start 03/14/16 at 06:00 Docusate Sodium (Colace) 100 mg BID PO Last administered on 03/15/16 08:18; Admin Dose 100 MG; Start 03/14/16 at 09:00 Acetaminophen (Tylenol Tab) 650 mg Q6H PRN PO PAIN AND OR ELEVATED TEMP; Start 03/14/16 at 06:30 Acetaminophen/ Hydrocodone Bitart ([place] (10/325)) 1 tab Q4H PRN PO PAIN; Start 03/14/16 at 14:00 AMANDA CARRASQUILLO MD Mar 15, 2016 11:00
--- NOTE | 2016-03-15 18:10 | RADRPT ---
Vent Rate: 92 bpm RR Interval: 0 msec OK Interval: 132 msec QRS Duration: 68 msec QT Interval: 370 msec QTC Interval: 457 msec P-R-T [place]: 88 - 72 - 41 degrees Normal sinus rhythm Normal ECG Electronically Signed By: Felipe Land [id number]
--- NOTE | 2016-03-15 18:10 | CONS ---
Date/Time of Note Date/Time of Note DATE: 03/15/16 TIME: 18:06 Assessment/Plan Assessment/Plan Chief Complaint/Hosp Course Ms Kline is a 75y/o female with bilateral knee replacements who was admitted after potentially injuring her left knee. The patient had a complicated left knee surgical history with the original TKR resulting in tear then a mesh repair of some sort was completed this year. The patient was progressing well apparently and the day prior to admission walked and worked with PT for over an hour; the most she had in some time. The next day she was not sore and there were no new issues. In the evening she got up from her chair and fell back into it after tripping on the walker and twisted her knee while doing so. She was BIB ambulance to the ED and there was concern for an infection. Per the patient she has been on bactrim since the repair surgery. it is not clear if an infection was found, presumed or just concern for it with the hardware. She notes intermittent drainage from the knee that is generally brown. This has been followed by Dr. Reyna her orthopedist and apparently no significant concern for infection. The knee is painful now and swollen. There is more pain than normal. The patient denies N, V, D, HALL, myalgia, arthralgia, complaints , back pain. Problems: Additional Assessment/Plan Assessment: 1. Complicated orthopedic repair of left TKR. Uncertain if there is a chronic infection in the hardware given the use of chronic bactrim suppression therapy. It is unlikely that this represents an acute infection because of the rapidity of onset and the paucity of findings on physical exam to support a rapidly progressive infection. It is more likely that the joint has suffered trauma from the twisting action during the fall, rather than a new acute infection. I cannot rule out an exacerbation of chronic infection. Clearly the joint needs to be tapped for culture, WBC, etc. Evaluation by orthopedics is also required. 2. Patient is without symptoms of UTI. She is not likely to have this. 3. Seizure d/o on Keppra. 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 Will avoid for now, if need coverage for resistant GPC we can use daptomycin. RECOMMENDATIONS: 1. Needs aspiration of joint for CBC with diff and culture as soon as is feasible 2. Needs evaluation by orthopedics; can obtain MRI pending evaluation. 3. Monitor clinically off antibiotics for now Consultation Date/Type/Reason Admit Date/Time Mar 14, 2016 at 03:26 Initial Consult Date 03/14/16 Type of Consultation: Infectious Diseases 24 HR Interval Summary Free Text/Dictation No changes. Patient not out of bed now since admission. No loose stools. Becoming frustrated awaiting transfer to [place]. No increased pain in the leg Exam/Review of Systems Vital Signs Vitals Vital Signs Date Time Temp Pulse Resp B/P Pulse Ox O2 Delivery O2 Flow Rate FiO2 03/15/16 07:47 98.3 94 20 113/58 95 03/14/16 03:40 Room Air Intake and Output 03/14/16 03/14/16 03/15/16 15:00 23:00 07:00 Intake Total 250 ml 1140 ml 240 ml Output Total 1400 ml 450 ml Balance 250 ml -260 ml -210 ml Exam Constitutional: alert, oriented, well developed Psych: nl mood/affect, no complaints Head: atraumatic, normocephalic Eyes: EOMI, PERRL, nl conjunctiva, nl lids, nl sclera ENMT: nl external ears & nose, nl lips & teeth, nl nasal mucosa & septum Neck: non-tender, supple Respiratory: clear to auscultation, normal air movement Cardiovascular: nl pulses, regular rate and rhythm Gastrointestinal: nl liver, spleen, non-tender, soft Genitourinary - Female: other (sanchez present) Extremities: edema (RLE), normal pulses Neurological: CRIME SCENE EXAMINER II-XII intact, nl mental status, nl speech, nl strength Lymph: nl lymph nodes Results Result Diagram: 03/15/16 0500 03/15/16 0500 Results 24 hrs Laboratory Tests Test 03/15/16 05:00 Anion Gap 15 Basophils # 0.0 Basophils % 0.2 Blood Morphology Comment Blood Urea Nitrogen 9 Calcium Level 8.8 Carbon Dioxide Level 26 Chloride Level 104 Creatinine 0.65 Eosinophils # 0.1 Eosinophils % 0.7 Glucose Level 98 Hematocrit 35.3 L Hemoglobin 12.0 Hemoglobin A1c 5.0 Lymphocytes # 1.5 Lymphocytes % 12.1 L Magnesium Level 1.8 Mean Corpuscular Hemoglobin 31.3 Mean Corpuscular Hemoglobin Concent 33.9 Mean Corpuscular Volume 92.3 Mean Platelet Volume 7.7 Monocytes # 1.0 H Monocytes % 7.8 Neutrophils # 10.1 H Neutrophils % 79.2 H Nucleated Red Blood Cells # 0.0 Nucleated Red Blood Cells % 0.0 Phosphorus Level 3.3 Platelet Count 213 Potassium Level 3.5 Red Blood Count 3.83 L Red Cell Distribution Width 14.7 H Sodium Level 141 Thyroid Stimulating Hormone (TSH) 1.160 White Blood Count 12.7 #H Medications Medications Current Medications Allopurinol (Zyloprim) 200 mg DAILY PO Last administered on 03/15/16 08:17; Admin Dose 200 MG; Start 03/14/16 at 09:00 Amlodipine Besylate (Norvasc) 2.5 mg DAILY PO Last administered on 03/15/16 08: 20; Admin Dose 2.5 MG; Start 03/14/16 at 09:00 Levetiracetam (Keppra) 1,000 mg BID PO Last administered on 03/15/16 08:19; Admin Dose 1,000 MG; Start 03/14/16 at 09:00 Famotidine (Pepcid) 20 mg DAILY PO Last administered on 03/15/16 08:19; Admin Dose 20 MG; Start 03/14/16 at 09:00 Morphine Sulfate (morphine) 2 mg Q4H PRN IV pain Last administered on 03/15/16 09:41; Admin Dose 2 MG; Start 03/14/16 at 06:00 Docusate Sodium (Colace) 100 mg BID PO Last administered on 03/15/16 08:18; Admin Dose 100 MG; Start 03/14/16 at 09:00 Acetaminophen (Tylenol Tab) 650 mg Q6H PRN PO PAIN AND OR ELEVATED TEMP; Start 03/14/16 at 06:30 Acetaminophen/ Hydrocodone Bitart ([place] (10325)) 1 tab Q4H PRN PO PAIN; Start 03/14/16 at 14:00 FIOR JEFF Mar 15, 2016 18:10
--- NOTE | 2016-03-15 18:11 | DS ---
DATE OF ADMISSION: 03/14/2016 DATE OF DISCHARGE: 03/15/2016 PRIMARY CARE PHYSICIAN: Unknown. SQUARE SHEAR OPERATOR: Dr. Charles Reyna Dr. ____. DIAGNOSES ON ADMISSION: 1. Mechanical fall. 2. Left knee pain. 3. History of left knee replacement. DIAGNOSES ON DISCHARGE: 1. Mechanical fall. 2. Left knee pain/history of replacement/prosthetic mesh placement/chronic pain. 3. Seizure disorder. 4. Systemic inflammatory response syndrome. 5. History of gout. 6. Hypertension. 7. Degenerative joint disease. HOSPITAL COURSE: This is a 75-year-old female with history of left knee replacement with apparently another procedure earlier this year, requiring placement of a mesh. She may be on long-term Bactri m. The patient had a mechanical fall prior to admission after, I believe, tripping over her walker. Dickson mast presented with pain, diminished range of motion, some edema with minimal erythema. She was seen b y infectious disease. Orthopedic surgery has recommended they transfer her [facility] for high level of care. She may need joint revision. The first part, I think, is to rule out septic caty int, septic prosthesis, which will require an aspiration. We will hold antibiotics and anticoagulat ion/aspirin that may impede diagnostic findings and management plan. I will reinforce this with the patient. I agree with infectious disease recommended that we should hold off antibiotics at this t ketan. There is no evidence of toxicity, fever, nausea, vomiting, uremia to further indicate this is a septic process. Potentially, this is a local degenerative injury related issue. At this time, the patient is being evaluated for transfer to [facility]. DIET: Low salt. ACTIVITY: No heavy lifting, driving, ____. ALLERGIES 1. PENICILLIN. 2. VANCOMYCIN THAT MAY BE ASSOCIATED WITH SEIZURE, WHICH I DOUBT. CODE STATUS: FULL. CONDITION: Good. BARRIERS TO DISCHARGE: None. PENDING TESTS: None. FUNCTIONAL STATUS: Awake, alert, aware of the plan of care. LABORATORY DATA: BMP unremarkable. A1c of 5. TSH of 1.1. LFTs okay. Troponin negative. Albumin of 4. INR 0.9. Urine essentially unremarkable. White cell count down from 21 to 12, H and H of 1 2 and 35, platelets of 213. Urine and blood culture negative at this time. Knee x-ray shows left k nee replacement in anatomical alignment, no acute fracture or dislocation. There is mild soft tissu e swelling medial to the proximal ____. Chest x-ray: Low lung volumes bilaterally. She has some c rowding and bilateral discoid atelectasis. Mild atherosclerotic vascular change/disease and cardiom egaly. Mild thoracic spondylosis, bilateral glenohumeral arthropathy with bilateral acromioclavicul ar osteoarthropathy. DISCHARGE MEDICATIONS: STOPPED MEDICATIONS: 1. Aspirin. 2. Bactrim. CONTINUED MEDICATIONS: 1. Allopurinol 200. 2. Norvasc 2.5. 3. Keppra 1000 b.i.d. 4. Tylenol daily. ALTERED MEDICATIONS: None. NEW MEDICATIONS: Tylenol as needed. Dictated By: AMANDA CARRASQUILLO MD AC/NTS Conf#: [id number] DID#: [id number] CC: FIOR JEFF MD; COCO REYNA MD; GUALBERTO SOLANO MD;*EndCC*
--- NOTE | 2016-03-15 18:11 | CONS ---
DATE OF ADMISSION: 03/14/2016 DATE OF CONSULTATION: CHIEF COMPLAINT: Left knee pain. HISTORY OF PRESENT ILLNESS: This is a 75-year-old female who had a previous left total knee arthroplasty performed by Dr. Contreras Reyna approximately 1 year ago. According to patient, she started developing increasing knee pain over the last week. She has been unable to ambulate. She states that she had pain with her total knee following surgery and had difficulty ambulating. She uses a walker for ambulation. She denies any recent fevers or chills. She denies any recent infections. PAST MEDICAL HISTORY: Gout, hypertension, osteoarthritis, seizure. MEDICATIONS: Please see chart. PAST SURGICAL HISTORY: Left total knee arthroplasty performed by Dr. Contreras Reyna. SOCIAL HISTORY: The patient denies tobacco, alcohol or drug use. FAMILY HISTORY: None. ALLERGIES: NO KNOWN DRUG ALLERGIES. REVIEW OF SYSTEMS: Negative except those mentioned in the HPI. PHYSICAL EXAMINATION: VITAL SIGNS: Temperature 98.0, 120/57, pulse of 94, respiratory rate of 16. GENERAL: Patient is in no acute distress. EXTREMITIES: Left knee. There are no open wounds. The previous healed incision. The knee is warm to touch. She has difficulty with range of motion due to pain. Her calf is soft, nontender. Negative Homans. She has palpable dorsalis pedis pulse. LABORATORY DATA: White blood cell count 12.7. Neutrophils 99%. IMAGING: X-rays, left knee: Two views of the left knee demonstrated a previous total knee prosthesis that is in appropriate position. Prosthesis is cemented. No fractures or dislocations are seen. ASSESSMENT AND PLAN: A 75-year-old female who is complaining of left knee pain with previous left total knee arthroplasty performed by Dr. Contreras Reyna. I explained to the patient that she will need further laboratory data including an ESR and CRP level. Depending on those values, she may require a knee aspiration to rule out an infection. I spoke to case management regarding this patient. She would like to be followed by Dr. Contreras Reyna. She does not want any intervention at this hospital. The patient may require left total knee revision if there is evidence of infection. Case management is currently speaking to [facility] regarding acceptance of patient to a higher level of care required. Dictated By: TIFFANY TIAN/ALEX Conf#: [id number] [facility]#: [id number] MTDD
[2016-03-15 19:39] VITALS: BP 126/58; RESP 14
--- NOTE | 2016-03-16 05:28 | RADRPT ---
PROCEDURE: Ultrasound examination of the right lower extremity with Doppler. CLINICAL INDICATION: Right leg pain and swelling. TECHNIQUE: Multiple sonographic images of the right lower extremity were performed with caldwell scal e and color Doppler. The patient refused to have left leg examined. COMPARISON: None. FINDINGS: The right common femoral, superficial femoral and popliteal veins demonstrate normal color flow, wav eforms, compression and response augmentation. There is no evidence of deep venous thrombosis. IMPRESSION: No evidence of deep venous thrombosis within the right lower extremity. .Sreedhar Maciel MD, Date Time Electronically viewed and signed by .Sreedhar Maciel MD, MD on 03/16/2016 05:27 .T/
[2016-03-16 06:09] LABS: BASOPHILS % 0.1 % (0.0-2.0); EOSINOPHILS # 0.2 10^3/ul (0.0-0.5); EOSINOPHILS % 1.8 % (0.0-7.0); HEMATOCRIT 36.3 % (37.0-47.0); HEMOGLOBIN 12.3 g/dl (12.0-16.0); LYMPHOCYTES # 1.3 10^3/ul (0.8-2.9); LYMPHOCYTES % 11.4 % (15.0-51.0); MEAN CORPUSCULAR HEMOGLOBIN 31.2 pg (29.0-33.0); MEAN CORPUSCULAR VOLUME 91.7 fl (82.0-101.0); MEAN PLATELET VOLUME 7.6 fl (7.4-10.4); MONOCYTE # 0.9 10^3/ul (0.3-0.9); MONOCYTES % 8.1 % (0.0-11.0); NEUTROPHIL # 8.8 10^3/ul (1.6-7.5); NEUTROPHILS % 78.6 % (39.0-77.0); PLATELET COUNT 207 10^3/UL (140-440); RED BLOOD COUNT 3.95 10^6/ul (4.20-5.40); RED CELL DISTRIBUTION WIDTH 14.1 % (11.5-14.5); UNCORRECTED WBC 11.2 10^3/ul (4.8-10.8); WHITE BLOOD COUNT 11.2 10^3/ul (4.8-10.8)
[2016-03-16 06:21] LABS: CONDITION 1
[2016-03-16 06:38] LABS: POTASSIUM 3.5 mmol/L (3.5-5.1)
[2016-03-16 06:41] LABS: CREATININE 0.62 mg/dl (0.44-1.00)
[2016-03-16 06:42] LABS: CALCIUM 8.7 mg/dl (8.4-10.2)
[2016-03-16 07:54] VITALS: BP 122/66; RESP 16
[2016-03-16] MEDS: LEVETIRACETAM 500 MG TAB PO SCH ×2 (08:29→20:27)
[2016-03-16] MEDS: DOCUSATE SODIUM 100 MG CAP PO SCH ×2 (08:29→20:28)
[2016-03-16] MEDS: ALLOPURINOL 100 MG TAB PO SCH (08:30)
[2016-03-16] MEDS: FAMOTIDINE 20 MG TAB PO SCH (08:30)
[2016-03-16] MEDS: AMLODIPINE 2.5 MG TAB PO SCH (08:30)
--- NOTE | 2016-03-16 11:34 | CONS ---
Date/Time of Note Date/Time of Note DATE: 03/16/16 TIME: 11:29 Assessment/Plan Assessment/Plan Chief Complaint/Hosp Course Assessment: 1. Complicated orthopedic repair of left TKR. Uncertain if there is a chronic infection in the hardware given the use of chronic bactrim suppression therapy. It is unlikely that this represents an acute infection because of the rapidity of onset and the paucity of findings on physical exam to support a rapidly progressive infection. It is more likely that the joint has suffered trauma from the twisting action during the fall, rather than a new acute infection. I cannot rule out an exacerbation of chronic infection. Clearly the joint needs to be tapped for culture, WBC, etc. Evaluation by orthopedics is also required. 2. Patient is without symptoms of UTI. She is not likely to have this. 3. Seizure d/o on Keppra. 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 Will avoid for now, if need coverage for resistant GPC we can use daptomycin. Problems: Additional Assessment/Plan recommendations - Pt's RN informed that a bed is not available yet at [facility]. we recommend diagnostic arthrocentesis, MRI once she get there - continue to monitor without antibiotics at this time management d/w Pt and her RN Consultation Date/Type/Reason Admit Date/Time Mar 14, 2016 at 03:26 Initial Consult Date 03/14/16 Type of Consultation: Infectious Diseases 24 HR Interval Summary Constitutional: no complaints Detailed Summary Eyes: no complaints ENT: no complaints Respiratory: no complaints Cardiovascular: no complaints Gastrointestinal: no complaints Genitourinary: other (FC) Musculoskeletal: bone/joint pain (chronic L knee pain) Skin: laceration (LLE) Neurologic: no complaints Exam/Review of Systems Vital Signs Vitals Vital Signs Date Time Temp Pulse Resp B/P Pulse Ox O2 Delivery O2 Flow Rate FiO2 03/16/16 07:54 98.5 90 16 122/66 95 03/14/16 03:40 Room Air Intake and Output 03/15/16 03/15/16 03/16/16 15:00 23:00 07:00 Intake Total 960 ml 1360 ml Output Total 1300 ml 600 ml Balance -340 ml 760 ml Exam Constitutional: alert, oriented, well developed Musculoskeletal: other (L knee is s/p TKA, no swelling/fluctuance noted), No joint tenderness, No swelling Skin: other (superficial laceration with scab on the LLE) Results Result Diagram: 03/16/16 0511 03/16/16 0511 Results 24 hrs Laboratory Tests Test 03/16/16 05:11 Anion Gap 14 Basophils # 0.0 Basophils % 0.1 Blood Urea Nitrogen 12 Calcium Level 8.7 Carbon Dioxide Level 28 Chloride Level 104 Creatinine 0.62 Eosinophils # 0.2 Eosinophils % 1.8 Glucose Level 97 Hematocrit 36.3 L Hemoglobin 12.3 Lymphocytes # 1.3 Lymphocytes % 11.4 L Mean Corpuscular Hemoglobin 31.2 Mean Corpuscular Hemoglobin Concent 34.0 Mean Corpuscular Volume 91.7 Mean Platelet Volume 7.6 Monocytes # 0.9 Monocytes % 8.1 Neutrophils # 8.8 H Neutrophils % 78.6 H Nucleated Red Blood Cells # 0.0 Nucleated Red Blood Cells % 0.0 Platelet Count 207 Potassium Level 3.5 Red Blood Count 3.95 L Red Cell Distribution Width 14.1 Sodium Level 142 White Blood Count 11.2 H Medications Medications Current Medications Allopurinol (Zyloprim) 200 mg DAILY PO Last administered on 03/16/16 08:30; Admin Dose 200 MG; Start 03/14/16 at 09:00 Amlodipine Besylate (Norvasc) 2.5 mg DAILY PO Last administered on 03/16/16 08: 30; Admin Dose 2.5 MG; Start 03/14/16 at 09:00 Levetiracetam (Keppra) 1,000 mg BID PO Last administered on 03/16/16 08:29; Admin Dose 1,000 MG; Start 03/14/16 at 09:00 Famotidine (Pepcid) 20 mg DAILY PO Last administered on 03/16/16 08:30; Admin Dose 20 MG; Start 03/14/16 at 09:00 Morphine Sulfate (morphine) 2 mg Q4H PRN IV pain Last administered on 03/15/16 21:04; Admin Dose 2 MG; Start 03/14/16 at 06:00 Docusate Sodium (Colace) 100 mg BID PO Last administered on 03/16/16 08:29; Admin Dose 100 MG; Start 03/14/16 at 09:00 Acetaminophen (Tylenol Tab) 650 mg Q6H PRN PO PAIN AND OR ELEVATED TEMP; Start 03/14/16 at 06:30 Acetaminophen/ Hydrocodone Bitart ([place] (10/325)) 1 tab Q4H PRN PO PAIN; Start 03/14/16 at 14:00 SIOBHAN BATES M.D. Mar 16, 2016 11:34
[2016-03-16 19:38] VITALS: BP 122/68; RESP 16
--- NOTE | 2016-03-16 23:19 | PN ---
Date/Time of Note Date/Time of Note DATE: 03/16/16 TIME: 23:19 Assessment/Plan VTE Prophylaxis VTE Prophylaxis Intervention: SCD's Lines/Catheters IV Catheter Type (from Nrsg): Peripheral IV Urinary Cath still in place: Yes Reason Cath still needed: other (indicate) (left knee pain, difficulty ambulaton) Assessment/Plan Assessment/Plan IMPRESSION 1. Mechanical fall. 2. Left knee pain/history of replacement/prosthetic mesh placement/chronic pain. 3. Seizure disorder. 4. Systemic inflammatory response syndrome. 5. History of gout. 6. Hypertension. 7. Degenerative joint disease. PLAN Cont current medical mgmt will start physical therapy awaiting transfer to OSH to be evaluated by her orthopedic Surgeon Subjective 24 Hr Interval Summary Free Text/Dictation pr concerened about left knee and asking to be transferred to OSH so that she can be seen by her primary orthopedic doctor Exam/Review of Systems Vital Signs Vitals Vital Signs Date Time Temp Pulse Resp B/P Pulse Ox O2 Delivery O2 Flow Rate FiO2 03/16/16 19:38 98.4 95 16 122/68 94 03/14/16 03:40 Room Air Intake and Output 03/15/16 03/15/16 03/16/16 15:00 23:00 07:00 Intake Total 960 ml 1360 ml Output Total 1300 ml 600 ml Balance -340 ml 760 ml Exam Constitutional: alert, oriented Head: atraumatic, normocephalic Eyes: EOMI, PERRL Neck: non-tender, supple Respiratory: clear to auscultation, normal air movement Cardiovascular: other (tachycardic with regular rhythm) Gastrointestinal: non-tender, soft Extremities: other (left knee with eythema and warmth. non tender) Results Result Diagram: 03/16/16 0511 03/16/16 0511 Results 24 hrs Laboratory Tests Test 03/16/16 05:11 03/16/16 14:50 Anion Gap 14 Basophils # 0.0 Basophils % 0.1 Blood Urea Nitrogen 12 Calcium Level 8.7 Carbon Dioxide Level 28 Chloride Level 104 Creatinine 0.62 Eosinophils # 0.2 Eosinophils % 1.8 Glucose Level 97 Hematocrit 36.3 L Hemoglobin 12.3 Lymphocytes # 1.3 Lymphocytes % 11.4 L Mean Corpuscular Hemoglobin 31.2 Mean Corpuscular Hemoglobin Concent 34.0 Mean Corpuscular Volume 91.7 Mean Platelet Volume 7.6 Monocytes # 0.9 Monocytes % 8.1 Neutrophils # 8.8 H Neutrophils % 78.6 H Nucleated Red Blood Cells # 0.0 Nucleated Red Blood Cells % 0.0 Platelet Count 207 Potassium Level 3.5 Red Blood Count 3.95 L Red Cell Distribution Width 14.1 Sodium Level 142 White Blood Count 11.2 H C-Reactive Protein 19.1 H Erythrocyte Sedimentation Rate 81 H Medications Medications Current Medications Allopurinol (Zyloprim) 200 mg DAILY PO Last administered on 03/16/16 08:30; Admin Dose 200 MG; Start 03/14/16 at 09:00 Amlodipine Besylate (Norvasc) 2.5 mg DAILY PO Last administered on 03/16/16 08: 30; Admin Dose 2.5 MG; Start 03/14/16 at 09:00 Levetiracetam (Keppra) 1,000 mg BID PO Last administered on 03/16/16 20:27; Admin Dose 1,000 MG; Start 03/14/16 at 09:00 Famotidine (Pepcid) 20 mg DAILY PO Last administered on 03/16/16 08:30; Admin Dose 20 MG; Start 03/14/16 at 09:00 Morphine Sulfate (morphine) 2 mg Q4H PRN IV pain Last administered on 03/15/16 21:04; Admin Dose 2 MG; Start 03/14/16 at 06:00 Docusate Sodium (Colace) 100 mg BID PO Last administered on 03/16/16 20:28; Admin Dose 100 MG; Start 03/14/16 at 09:00 Acetaminophen (Tylenol Tab) 650 mg Q6H PRN PO PAIN AND OR ELEVATED TEMP; Start 03/14/16 at 06:30 Acetaminophen/ Hydrocodone Bitart ([place] (10/325)) 1 tab Q4H PRN PO PAIN; Start 03/14/16 at 14:00 MINGO GAITAN MD Mar 16, 2016 23:19
[2016-03-17 05:28] LABS: BASOPHILS % 0.3 % (0.0-2.0); EOSINOPHILS # 0.2 10^3/ul (0.0-0.5); EOSINOPHILS % 2.3 % (0.0-7.0); HEMATOCRIT 36.9 % (37.0-47.0); HEMOGLOBIN 12.6 g/dl (12.0-16.0); LYMPHOCYTES # 1.5 10^3/ul (0.8-2.9); LYMPHOCYTES % 13.6 % (15.0-51.0); MEAN CORPUSCULAR HEMOGLOBIN 31.4 pg (29.0-33.0); MEAN CORPUSCULAR HGB CONC 34.2 g/dl (32.0-37.0); MEAN CORPUSCULAR VOLUME 91.7 fl (82.0-101.0); MEAN PLATELET VOLUME 7.5 fl (7.4-10.4); MONOCYTE # 0.9 10^3/ul (0.3-0.9); MONOCYTES % 8.3 % (0.0-11.0); NEUTROPHIL # 8.2 10^3/ul (1.6-7.5); NEUTROPHILS % 75.5 % (39.0-77.0); PLATELET COUNT 243 10^3/UL (140-440); RED BLOOD COUNT 4.02 10^6/ul (4.20-5.40); RED CELL DISTRIBUTION WIDTH 13.7 % (11.5-14.5); UNCORRECTED WBC 10.9 10^3/ul (4.8-10.8); WHITE BLOOD COUNT 10.9 10^3/ul (4.8-10.8)
[2016-03-17 05:36] LABS: CONDITION 1
[2016-03-17 07:35] VITALS: BP 120/80; RESP 18
--- NOTE | 2016-03-17 08:50 | CONS ---
Date/Time of Note Date/Time of Note DATE: 03/17/16 TIME: 08:46 Assessment/Plan Assessment/Plan Chief Complaint/Hosp Course assessment/impression: - acute exacerbation of L knee pain due to a fall prior to admission, probably a mechanical problem due to trauma but infection must be ruled out too. -h/o complicated orthopedic repair of L TKR in the past - h/o seizure, on Keppra - h/o seizures from vancomycin - PCN allergy Problems: Additional Assessment/Plan recommendations - we recommend imaging of L knee and diagnostic arthrocentesis - continue to monitor without antibiotics at this time Consultation Date/Type/Reason Admit Date/Time Mar 14, 2016 at 03:26 Initial Consult Date 03/14/16 Type of Consultation: Infectious Diseases 24 HR Interval Summary Free Text/Dictation No bed at [place] yet. Pt's RN and case management attempted to contact Dr. Reyna. Constitutional: no complaints Detailed Summary Eyes: no complaints ENT: no complaints Respiratory: no complaints Cardiovascular: no complaints Gastrointestinal: no complaints Genitourinary: other (FC) Musculoskeletal: bone/joint pain (chronic L knee pain, unchanged) Exam/Review of Systems Vital Signs Vitals Vital Signs Date Time Temp Pulse Resp B/P Pulse Ox O2 Delivery O2 Flow Rate FiO2 03/17/16 07:35 98.4 90 18 120/80 93 03/14/16 03:40 Room Air Intake and Output 03/16/16 03/16/16 03/17/16 15:00 23:00 07:00 Intake Total 1500 ml 800 ml Output Total 850 ml 750 ml Balance 650 ml 50 ml Exam Constitutional: alert, oriented, well developed Psych: no complaints Head: atraumatic, normocephalic Eyes: EOMI, nl conjunctiva, nl lids Neck: supple Musculoskeletal: other (s/p L TKR, min edema lateral L knee but no fluctuance, induration, acute erythema) Extremities: No edema Results Result Diagram: 03/17/16 0430 03/16/16 0511 Results 24 hrs Laboratory Tests Test 03/16/16 14:50 03/17/16 04:30 C-Reactive Protein 19.1 H Erythrocyte Sedimentation Rate 81 H Basophils # 0.0 Basophils % 0.3 Eosinophils # 0.2 Eosinophils % 2.3 Hematocrit 36.9 L Hemoglobin 12.6 Lymphocytes # 1.5 Lymphocytes % 13.6 L Mean Corpuscular Hemoglobin 31.4 Mean Corpuscular Hemoglobin Concent 34.2 Mean Corpuscular Volume 91.7 Mean Platelet Volume 7.5 Monocytes # 0.9 Monocytes % 8.3 Neutrophils # 8.2 H Neutrophils % 75.5 Nucleated Red Blood Cells # 0.0 Nucleated Red Blood Cells % 0.0 Platelet Count 243 Red Blood Count 4.02 L Red Cell Distribution Width 13.7 White Blood Count 10.9 H Medications Medications Current Medications Allopurinol (Zyloprim) 200 mg DAILY PO Last administered on 03/16/16 08:30; Admin Dose 200 MG; Start 03/14/16 at 09:00 Amlodipine Besylate (Norvasc) 2.5 mg DAILY PO Last administered on 03/16/16 08: 30; Admin Dose 2.5 MG; Start 03/14/16 at 09:00 Levetiracetam (Keppra) 1,000 mg BID PO Last administered on 03/16/16 20:27; Admin Dose 1,000 MG; Start 03/14/16 at 09:00 Famotidine (Pepcid) 20 mg DAILY PO Last administered on 03/16/16 08:30; Admin Dose 20 MG; Start 03/14/16 at 09:00 Morphine Sulfate (morphine) 2 mg Q4H PRN IV pain Last administered on 03/15/16 21:04; Admin Dose 2 MG; Start 03/14/16 at 06:00 Docusate Sodium (Colace) 100 mg BID PO Last administered on 03/16/16 20:28; Admin Dose 100 MG; Start 03/14/16 at 09:00 Acetaminophen (Tylenol Tab) 650 mg Q6H PRN PO PAIN AND OR ELEVATED TEMP; Start 03/14/16 at 06:30 Acetaminophen/ Hydrocodone Bitart ([place] (10/325)) 1 tab Q4H PRN PO PAIN; Start 03/14/16 at 14:00 SIOBHAN BATES M.D. Mar 17, 2016 08:50
[2016-03-17] MEDS: FAMOTIDINE 20 MG TAB PO SCH (09:28)
[2016-03-17] MEDS: LEVETIRACETAM 500 MG TAB PO SCH ×2 (09:28→20:47)
[2016-03-17] MEDS: ALLOPURINOL 100 MG TAB PO SCH (09:28)
[2016-03-17] MEDS: DOCUSATE SODIUM 100 MG CAP PO SCH ×2 (09:28→20:15)
[2016-03-17] MEDS: AMLODIPINE 2.5 MG TAB PO SCH (09:29)
--- NOTE | 2016-03-17 14:30 | CONS ---
DATE OF ADMISSION: 03/14/2016 DATE OF CONSULTATION: 03/17/2016 TYPE OF CONSULTATION: Orthopedic. CHIEF COMPLAINT: Knee wound. REASON FOR CONSULTATION: Performed at the request of Dr. Sreedhar Ruiz. HISTORY OF PRESENT ILLNESS: The patient is well known to me. She underwent left total knee replaceme nt and suffered complication of patellar tendon rupture. I then took her to surgery for revision of left total knee replacement and did a patellar tendon reconstruction with mesh. She then had wound c omplication break down and underwent plastic surgery for flap coverage of her wound. She was on supp ressive antibiotics daily with Bactrim for lifelong suppression per Dr. Moulton. I had seen her fairly r ecently in the office. She was doing well walking, ambulating with no knee pain. She presented to [facility], she was doing very well and walking and had no knee pain, no stomach com plaints. She did have a chronic eschar anterior knee and medial leg, which was slowly decreasing ov er time. On the opinion of her plastic surgeon and myself recommended continued observation and was on antibiotic suppression with Bactrim, lifelong. Recently she fell and twisted her knee awkwardly a nd was admitted to the hospital for concern of urinary tract infection or knee infection. She has be en on antibiotics IV which are now being held for aspiration. PAST MEDICAL HISTORY: Gout, hypertension, osteoarthritis, seizure. MEDICATIONS: Reviewed. SURGICAL HISTORY: Multiple knee surgeries. SOCIAL HISTORY: No tobacco or alcohol. FAMILY HISTORY: Reviewed, noncontributory. ALLERGIES: NO KNOWN DRUG ALLERGIES. REVIEW OF SYSTEMS: A 14 point review of systems was performed. PHYSICAL EXAMINATION: EXTREMITIES: Left knee has superficial wound dehiscence of the proximal aspect of the knee about 1 c m x 0.5 cm with mild erythema. No gross purulence. Granulation tissue at the base. Knee has no gross instability. She is able to straight leg raise with good strength, mild warmth. X-rays show a left knee replacement, no migration, loosening or . Hardware in good position. LABORATORY DATA: Labs were reviewed, shows a white count of 22.1 on admission, down to 10.9 today. E SR 81. IMPRESSION: Superficial wound infection. No prosthesis complication. Rule out deep infection. PLAN: I ordered a knee prosthetic joint aspiration to be performed in radiology. Send the synovial f luid for a total cell count with diff, aerobic and anaerobic fungal AFB cultures. At the bedside I p erformed 2 swabs for superficial wound. Will also send those swabs for anaerobic/aerobic fungal AFB. Will plan on operative treatment and I believe in a surgical intervention to her knee will worsen h er condition ultimately. Will plan nonoperative treatment. She will require a course of IV antibioti cs to treat her knee infection followed by lifelong oral suppression. The type and length of IV anti biotics and ultimate oral supression antibiotic will be determined by her superficial swab cultures and also the upcoming deep knee aspiration. I ordered a PICC line. She should have a PICC line for l ongterm antibiotics IV. She requires an infectious disease consultation. Her IV antibiotics should b e restarted immediately after her aspiration is performed. Her knee is stable. She can be full weigh tbearing, weightbearing as tolerated with physical therapy out of bed as tolerated. No brace require d. She does not require surgical intervention. She does not require transfer to [facility]. She will likely be here a few days for her culture results of her superficial and deep cultures to come up with an antibiotic plan by infectious disease and then can be discharged home to followup [facility] as an outpatient. Also she should have local wound care. I ordered a wound care nurse consult. Dictated By: COCO GREENBERG/ALEX Conf#: [id number] DID#: [id number]
[2016-03-17] MEDS ORDERED: LIDOCAINE 1% (MPF) 5 ML VIAL ONE (15:00)
--- NOTE | 2016-03-17 15:15 | RADRPT ---
PROCEDURE: Ultrasound guided aspiration of left knee joint. CLINICAL INDICATION: History of left knee arthroplasty. Left knee joint effusion. TECHNIQUE: Prior to the procedure, informed consent was obtained. Risks including bleeding and in fection were explained to the the patient. The patient understood and was willing to proceed. A pr ocedural pause was performed. The patient's name, date of , and procedure to be performed were verified. Using local anesthetic, sterile technique and ultrasound guidance, a 21-gauge needle was advanced in to the left knee joint. 10 ml of cloudy serosanguinous fluid was aspirated. The patient tolerated the procedure well. A dressing was applied. COMPARISON: Left knee radiographs dated 03/13/2016. FINDINGS: Images demonstrate the small left knee joint effusion. Subsequent images demonstrate the needle ent ering the left knee joint. IMPRESSION: 1. Satisfactory ultrasound-guided left knee joint aspiration. RPTAT: QQ .Cole Stern MD, MD Date Time Electronically viewed and signed by .Cole Stern MD, on 03/17/2016 15:15 .R/
--- NOTE | 2016-03-17 16:00 | PN ---
Date/Time of Note Date/Time of Note DATE: 03/17/16 TIME: 15:55 Assessment/Plan VTE Prophylaxis VTE Prophylaxis Intervention: SCD's Lines/Catheters IV Catheter Type (from Nrsg): [place] Urinary Cath still in place: Yes Reason Cath still needed: other (indicate) (left knee pain) Assessment/Plan Assessment/Plan IMPRESSION 1. Mechanical fall. 2. Left knee superficial infection/ pain with history of replacement/ prosthetic mesh placement/chronic pain. 3. Seizure disorder. 4. Systemic inflammatory response syndrome. 5. History of gout. 6. Hypertension. 7. Degenerative joint disease. PLAN Seen by her primary Orthopedist with plan for arthrocentesis. Abx to be started after procedure. ID already following pt Cont current medical mgmt and pain meds as needed Physical therapy Subjective 24 Hr Interval Summary Free Text/Dictation no acute events. c/o intermittent left knee pain Exam/Review of Systems Vital Signs Vitals Vital Signs Date Time Temp Pulse Resp B/P Pulse Ox O2 Delivery O2 Flow Rate FiO2 03/17/16 07:35 98.4 90 18 120/80 93 03/14/16 03:40 Room Air Intake and Output 03/16/16 03/16/16 03/17/16 15:00 23:00 07:00 Intake Total 1500 ml 800 ml Output Total 850 ml 750 ml Balance 650 ml 50 ml Exam Constitutional: alert, oriented Head: atraumatic, normocephalic Eyes: EOMI, PERRL Neck: non-tender, supple Respiratory: clear to auscultation, normal air movement Cardiovascular: other (tachycardic with regular rhythm) Gastrointestinal: non-tender, soft Extremities: other (left knee with eythema and warmth. non tender) Results Result Diagram: 03/17/16 0430 03/16/16 0511 Results 24 hrs Laboratory Tests Test 03/17/16 04:30 Basophils # 0.0 Basophils % 0.3 Eosinophils # 0.2 Eosinophils % 2.3 Hematocrit 36.9 L Hemoglobin 12.6 Lymphocytes # 1.5 Lymphocytes % 13.6 L Mean Corpuscular Hemoglobin 31.4 Mean Corpuscular Hemoglobin Concent 34.2 Mean Corpuscular Volume 91.7 Mean Platelet Volume 7.5 Monocytes # 0.9 Monocytes % 8.3 Neutrophils # 8.2 H Neutrophils % 75.5 Nucleated Red Blood Cells # 0.0 Nucleated Red Blood Cells % 0.0 Platelet Count 243 Red Blood Count 4.02 L Red Cell Distribution Width 13.7 White Blood Count 10.9 H Medications Medications Current Medications Allopurinol (Zyloprim) 200 mg DAILY PO Last administered on 03/17/16 09:28; Admin Dose 200 MG; Start 03/14/16 at 09:00 Amlodipine Besylate (Norvasc) 2.5 mg DAILY PO Last administered on 03/17/16 09: 29; Admin Dose 2.5 MG; Start 03/14/16 at 09:00 Levetiracetam (Keppra) 1,000 mg BID PO Last administered on 03/17/16 09:28; Admin Dose 1,000 MG; Start 03/14/16 at 09:00 Famotidine (Pepcid) 20 mg DAILY PO Last administered on 03/17/16 09:28; Admin Dose 20 MG; Start 03/14/16 at 09:00 Morphine Sulfate (morphine) 2 mg Q4H PRN IV pain Last administered on 03/15/16 21:04; Admin Dose 2 MG; Start 03/14/16 at 06:00 Docusate Sodium (Colace) 100 mg BID PO Last administered on 03/17/16 09:28; Admin Dose 100 MG; Start 03/14/16 at 09:00 Acetaminophen (Tylenol Tab) 650 mg Q6H PRN PO PAIN AND OR ELEVATED TEMP; Start 03/14/16 at 06:30 Acetaminophen/ Hydrocodone Bitart ([place] (10/325)) 1 tab Q4H PRN PO PAIN; Start 03/14/16 at 14:00 MINGO GAITAN MD Mar 17, 2016 16:00
[2016-03-17 19:00] VITALS: BP 121/59; RESP 19
[2016-03-17 21:03] LABS: SYNOVIAL FLUID TYPE Left Knee; SYNOVIAL FLUID VOLUME 10 mL (0-3.5)
[2016-03-17 21:04] LABS: LYMPHOCYTES,SYNOVIAL FLUID 3; NEUTROPHILS,SYNOVIAL FLUID 95 % (0-25); SYNOVIAL FLUID CLARITY Slightly Cloudy; SYNOVIAL FLUID WBC 15360 /cmm (0-150)
[2016-03-18 07:37] VITALS: BP 115/84; RESP 18
[2016-03-18] MEDS ORDERED: LIDOCAINE 1% (MDV) 20 ML INJ SC ONE (08:00)
[2016-03-18] MEDS: DOCUSATE SODIUM 100 MG CAP PO SCH ×2 (08:15→20:09)
[2016-03-18] MEDS: ALLOPURINOL 100 MG TAB PO SCH (08:16)
[2016-03-18] MEDS: LEVETIRACETAM 500 MG TAB PO SCH ×2 (08:16→20:08)
[2016-03-18] MEDS: FAMOTIDINE 20 MG TAB PO SCH (08:16)
[2016-03-18] MEDS: AMLODIPINE 2.5 MG TAB PO SCH (08:16)
--- NOTE | 2016-03-18 09:18 | CONS ---
Date/Time of Note Date/Time of Note DATE: 03/18/16 TIME: 09:15 Assessment/Plan Assessment/Plan Chief Complaint/Hosp Course assessment/impression: - acute exacerbation of L knee pain due to a fall prior to admission, s/p diagnostic arthrocentesis 03/17/2016. WBC=15,360 with 95% neutrophils. ESR=81 on - h/o complicated orthopedic repair of L TKR in the past - h/o seizure, on Keppra - h/o seizures from vancomycin - PCN allergy - rash when she took it 40 years ago - vancomycin allergy - per Pt, she had Sz of unclear etiology and was informed by her providers at that time that it might be caused by vancomycin Problems: Additional Assessment/Plan recommendations - pending results: bacterial, fungal and AFB smear and culture - I recommend empiric IV daptomycin and meropenem while waiting for the results. Pt will probably need long-term antibiotics. - I will adjust her antibiotics based on the culture results - will check CK - Pt is allergic to penicillin and vancomycin and so her antimicrobial choices are limited. I am choosing daptomycin over linezolid because linezolid poses a risk of anemia and thrombocytopenia if given more than two weeks. - She also requested antibiotics that "do not make me sick to the stomach." I explained to her that if she has severe GI reactions, I will replace her antibiotic to a different kind. I discussed the management with Pt and answered all her questions and concerns. I also discussed the management with Pt's RN the total time I took to care for this Pt today was from 0905 to 0950 Consultation Date/Type/Reason Admit Date/Time Mar 14, 2016 at 03:26 Initial Consult Date 03/14/16 Type of Consultation: Infectious Diseases 24 HR Interval Summary Constitutional: no complaints Detailed Summary Eyes: no complaints ENT: no complaints Respiratory: no complaints Cardiovascular: no complaints Gastrointestinal: no complaints Genitourinary: no complaints Musculoskeletal: bone/joint pain (chronic L knee pain) Skin: laceration Exam/Review of Systems Vital Signs Vitals Vital Signs Date Time Temp Pulse Resp B/P Pulse Ox O2 Delivery O2 Flow Rate FiO2 03/18/16 07:37 98.3 83 18 115/84 96 Intake and Output 03/17/16 03/17/16 03/18/16 15:00 23:00 07:00 Intake Total 1340 ml 600 ml Output Total 1250 ml 1200 ml Balance 90 ml -600 ml Exam Constitutional: alert, oriented Head: atraumatic, normocephalic Eyes: nl conjunctiva, nl lids Neck: supple Musculoskeletal: swelling (L knee), No joint tenderness Extremities: No edema Results Result Diagram: 03/17/16 0430 03/16/16 0511 Results 24 hrs Laboratory Tests Test 03/17/16 15:00 Synovial Fluid Appearance Slightly Cloudy Synovial Fluid Color Synovial Fluid Crystals No crystals seen Synovial Fluid Lymphocytes 3 Synovial Fluid Monocytes 2 Synovial Fluid Neutrophils 95 H Synovial Fluid Source Left Knee Synovial Fluid Volume 10 H Synovial Fluid WBC 10863 H Medications Medications Current Medications Allopurinol (Zyloprim) 200 mg DAILY PO Last administered on 03/18/16 08:16; Admin Dose 200 MG; Start 03/14/16 at 09:00 Amlodipine Besylate (Norvasc) 2.5 mg DAILY PO Last administered on 03/18/16 08: 16; Admin Dose 2.5 MG; Start 03/14/16 at 09:00 Levetiracetam (Keppra) 1,000 mg BID PO Last administered on 03/18/16 08:16; Admin Dose 1,000 MG; Start 03/14/16 at 09:00 Famotidine (Pepcid) 20 mg DAILY PO Last administered on 03/18/16 08:16; Admin Dose 20 MG; Start 03/14/16 at 09:00 Morphine Sulfate (morphine) 2 mg Q4H PRN IV pain Last administered on 03/15/16 21:04; Admin Dose 2 MG; Start 03/14/16 at 06:00 Docusate Sodium (Colace) 100 mg BID PO Last administered on 03/18/16 08:15; Admin Dose 100 MG; Start 03/14/16 at 09:00 Acetaminophen (Tylenol Tab) 650 mg Q6H PRN PO PAIN AND OR ELEVATED TEMP; Start 03/14/16 at 06:30 Acetaminophen/ Hydrocodone Bitart ([place] (10/325)) 1 tab Q4H PRN PO PAIN; Start 03/14/16 at 14:00 SIOBHAN BATES M.D. Mar 18, 2016 09:18
[2016-03-18] MEDS: SOD CHLORIDE 0.9% IVPB SCH (12:33)
[2016-03-18] MEDS: DAPTOMYCIN IVPB SCH (12:33)
[2016-03-18] MEDS: MEROPENEM 1 GM in SOD CHLORIDE 0.9% 100 ML IVPB SCH ×2 (14:36→21:53)
--- NOTE | 2016-03-18 19:19 | PN ---
Date/Time of Note Date/Time of Note DATE: 03/18/16 TIME: 19:19 Assessment/Plan VTE Prophylaxis VTE Prophylaxis Intervention: SCD's Lines/Catheters IV Catheter Type (from Nrsg): Saline Lock Urinary Cath still in place: Yes Reason Cath still needed: other (indicate) Assessment/Plan Assessment/Plan IMPRESSION 1. Mechanical fall. 2. Left knee superficial infection/ pain with history of replacement/ prosthetic mesh placement/chronic pain. 3. Seizure disorder. 4. Systemic inflammatory response syndrome. 5. History of gout. 6. Hypertension. 7. Degenerative joint disease. PLAN will f/u result of arthrocentesis. cont Abx ID managing Cont current medical mgmt and pain meds as needed cont Physical therapy Exam/Review of Systems Vital Signs Vitals Vital Signs Date Time Temp Pulse Resp B/P Pulse Ox O2 Delivery O2 Flow Rate FiO2 03/18/16 07:37 98.3 83 18 115/84 96 Intake and Output 03/17/16 03/17/16 03/18/16 15:00 23:00 07:00 Intake Total 1340 ml 600 ml Output Total 1250 ml 1200 ml Balance 90 ml -600 ml Exam Constitutional: alert, oriented Head: atraumatic, normocephalic Eyes: EOMI, PERRL Neck: non-tender, supple Respiratory: clear to auscultation, normal air movement Cardiovascular: other (tachycardic with regular rhythm) Gastrointestinal: non-tender, soft Extremities: other (left knee with eythema and warmth. non tender) Results Result Diagram: 03/17/16 0430 03/16/16 0511 Medications Medications Current Medications Allopurinol (Zyloprim) 200 mg DAILY PO Last administered on 03/18/16 08:16; Admin Dose 200 MG; Start 03/14/16 at 09:00 Amlodipine Besylate (Norvasc) 2.5 mg DAILY PO Last administered on 03/18/16 08: 16; Admin Dose 2.5 MG; Start 03/14/16 at 09:00 Levetiracetam (Keppra) 1,000 mg BID PO Last administered on 03/18/16 08:16; Admin Dose 1,000 MG; Start 03/14/16 at 09:00 Famotidine (Pepcid) 20 mg DAILY PO Last administered on 03/18/16 08:16; Admin Dose 20 MG; Start 03/14/16 at 09:00 Morphine Sulfate (morphine) 2 mg Q4H PRN IV pain Last administered on 03/15/16 21:04; Admin Dose 2 MG; Start 03/14/16 at 06:00 Docusate Sodium (Colace) 100 mg BID PO Last administered on 03/18/16 08:15; Admin Dose 100 MG; Start 03/14/16 at 09:00 Acetaminophen (Tylenol Tab) 650 mg Q6H PRN PO PAIN AND OR ELEVATED TEMP; Start 03/14/16 at 06:30 Acetaminophen/ Hydrocodone Bitart 1 tab 1 tab Q4H PRN PO PAIN; Start 03/14/16 at 14:00 Daptomycin 465 mg/ Sodium Chloride 100 ml @ 200 mls/hr Q24H IVPB Last administered on 03/18/16 12:33; Admin Dose 200 MLS/HR; Start 03/18/16 at 11:00 Meropenem/Sodium Chloride (Merrem/NS) 100 ml @ 200 mls/hr Q8 IVPB Last administered on 03/18/16 14:36; Admin Dose 200 MLS/HR; Start 03/18/16 at 14:00 MINGO GAITAN MD Mar 18, 2016 19:19
[2016-03-18 19:40] VITALS: BP 122/61; RESP 20
[2016-03-19] MEDS: MEROPENEM 1 GM in SOD CHLORIDE 0.9% 100 ML IVPB SCH ×3 (05:44→21:36)
[2016-03-19 08:01] VITALS: BP 121/60; RESP 16
[2016-03-19] MEDS: DOCUSATE SODIUM 100 MG CAP PO SCH ×2 (09:00→21:35)
[2016-03-19] MEDS: LEVETIRACETAM 500 MG TAB PO SCH ×2 (09:44→21:35)
[2016-03-19] MEDS: FAMOTIDINE 20 MG TAB PO SCH (09:46)
[2016-03-19] MEDS: ALLOPURINOL 100 MG TAB PO SCH (09:46)
[2016-03-19] MEDS: AMLODIPINE 2.5 MG TAB PO SCH (09:47)
[2016-03-19] MEDS: DAPTOMYCIN IVPB SCH (11:57)
[2016-03-19] MEDS: SOD CHLORIDE 0.9% IVPB SCH (11:57)
--- NOTE | 2016-03-19 17:23 | CONS ---
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 WBC=15,360 with 95% neutrophils. ESR=81 on 03/16/2016 - h/o complicated orthopedic repair of L TKR in the past - h/o seizure, on Keppra - h/o seizures from vancomycin - PCN allergy - rash when she took it 40 years ago - vancomycin allergy - per Pt, she had Sz of unclear etiology and was informed by her providers at that time that it might be caused by vancomycin Problems: Additional Assessment/Plan recommendations - I will review the final results of fluid cultures - I ordered CT of abd/pel to r/o possible GI/ source of E. coli e.g. diverticulitis - I ordered CT of L knee to r/o abscess - I recommend I&D of L knee if possible - OK to d/c IV daptomycin - Pt's currently on meropenem-->will switch it to levofloxacin if the rest of cultures grow the same strain of E. coli only - Pt will need 6 weeks of antibiotic. I will comment on the antibiotic once the rest of cultures are finalized. - I recommend weekly CBC, CMP and ESR while Pt's on antibiotic I discussed the management with Pt and answered all her questions and concerns. she requested that I speak with her friend, Madeline who is a nurse and called Madeline while I was in her room. So I explained to Madeline Pt's treatment plan. I also discussed the management with Pt's RN the total time I took to care for this Pt today was from 1620 to 1710 Consultation Date/Type/Reason Admit Date/Time Mar 14, 2016 at 03:26 Initial Consult Date 03/14/16 Type of Consultation: Infectious Diseases 24 HR Interval Summary Constitutional: no complaints Detailed Summary Eyes: no complaints ENT: no complaints Respiratory: no complaints Cardiovascular: no complaints Gastrointestinal: no complaints Genitourinary: other (FC) Musculoskeletal: bone/joint pain (chronic L knee pain) Skin: no complaints Neurologic: no complaints Exam/Review of Systems Vital Signs Vitals Vital Signs Date Time Temp Pulse Resp B/P Pulse Ox O2 Delivery O2 Flow Rate FiO2 03/19/16 08:01 98.4 91 16 121/60 92 Intake and Output 03/18/16 03/18/16 03/19/16 15:00 23:00 07:00 Intake Total 1200 ml 220 ml Output Total 300 ml 700 ml Balance 900 ml -480 ml Exam Constitutional: alert, oriented, well developed Psych: nl mood/affect, no complaints Head: atraumatic, normocephalic Eyes: nl conjunctiva, nl lids ENMT: nl external ears & nose, nl nasal mucosa & septum Neck: supple Musculoskeletal: swelling (mild, of L knee) Extremities: No edema Neurological: No confused Results Result Diagram: 03/17/16 0430 03/16/16 0511 Results 24 hrs Laboratory Tests Test 03/19/16 04:48 Creatine Kinase 39 Medications Medications Current Medications Allopurinol (Zyloprim) 200 mg DAILY PO Last administered on 03/19/16 09:46; Admin Dose 200 MG; Start 03/14/16 at 09:00 Amlodipine Besylate (Norvasc) 2.5 mg DAILY PO Last administered on 03/19/16 09: 47; Admin Dose 2.5 MG; Start 03/14/16 at 09:00 Levetiracetam (Keppra) 1,000 mg BID PO Last administered on 03/19/16 09:44; Admin Dose 1,000 MG; Start 03/14/16 at 09:00 Famotidine (Pepcid) 20 mg DAILY PO Last administered on 03/19/16 09:46; Admin Dose 20 MG; Start 03/14/16 at 09:00 Morphine Sulfate (morphine) 2 mg Q4H PRN IV pain Last administered on 03/15/16 21:04; Admin Dose 2 MG; Start 03/14/16 at 06:00 Docusate Sodium (Colace) 100 mg BID PO Last administered on 03/18/16 08:15; Admin Dose 100 MG; Start 03/14/16 at 09:00 Acetaminophen (Tylenol Tab) 650 mg Q6H PRN PO PAIN AND OR ELEVATED TEMP; Start 03/14/16 at 06:30 Acetaminophen/ Hydrocodone Bitart 1 tab 1 tab Q4H PRN PO PAIN; Start 03/14/16 at 14:00 Daptomycin 465 mg/ Sodium Chloride 100 ml @ 200 mls/hr Q24H IVPB Last administered on 03/19/16 11:57; Admin Dose 200 MLS/HR; Start 03/18/16 at 11:00 Meropenem/Sodium Chloride (Merrem/NS) 100 ml @ 200 mls/hr Q8 IVPB Last administered on 03/19/16 14:57; Admin Dose 200 MLS/HR; Start 03/18/16 at 14:00 SIOBHAN BATES M.D. Mar 19, 2016 17:23
--- NOTE | 2016-03-19 18:19 | PN ---
Date/Time of Note Date/Time of Note DATE: 03/19/16 TIME: 18:17 Assessment/Plan VTE Prophylaxis VTE Prophylaxis Intervention: SCD's Lines/Catheters IV Catheter Type (from Nrsg): Saline Lock Urinary Cath still in place: Yes Reason Cath still needed: other (indicate) Assessment/Plan Assessment/Plan IMPRESSION 1. Mechanical fall. 2. Left knee superficial infection/ pain with history of replacement/ prosthetic mesh placement/chronic pain. 3. Seizure disorder. 4. Systemic inflammatory response syndrome. 5. History of gout. 6. Hypertension. 7. Degenerative joint disease. PLAN will f/u result of arthrocentesis. cont Abx ID managing Cont current medical mgmt and pain meds as needed cont Physical therapy PICC line placement pending Subjective 24 Hr Interval Summary Free Text/Dictation c/o weakness after physical therapy. also reported left knee discomfort during physical therapy Exam/Review of Systems Vital Signs Vitals Vital Signs Date Time Temp Pulse Resp B/P Pulse Ox O2 Delivery O2 Flow Rate FiO2 03/19/16 08:01 98.4 91 16 121/60 92 Intake and Output 03/18/16 03/18/16 03/19/16 15:00 23:00 07:00 Intake Total 1200 ml 220 ml Output Total 300 ml 700 ml Balance 900 ml -480 ml Exam Constitutional: alert, oriented Head: atraumatic, normocephalic Eyes: EOMI, PERRL Neck: non-tender, supple Respiratory: clear to auscultation, normal air movement Cardiovascular: other (tachycardic with regular rhythm) Gastrointestinal: non-tender, soft Extremities: other (left knee with eythema and warmth. non tender) Results Result Diagram: 03/17/16 0430 03/16/16 0511 Results 24 hrs Laboratory Tests Test 03/19/16 04:48 Creatine Kinase 39 Medications Medications Current Medications Allopurinol (Zyloprim) 200 mg DAILY PO Last administered on 03/19/16 09:46; Admin Dose 200 MG; Start 03/14/16 at 09:00 Amlodipine Besylate (Norvasc) 2.5 mg DAILY PO Last administered on 03/19/16 09: 47; Admin Dose 2.5 MG; Start 03/14/16 at 09:00 Levetiracetam (Keppra) 1,000 mg BID PO Last administered on 03/19/16 09:44; Admin Dose 1,000 MG; Start 03/14/16 at 09:00 Famotidine (Pepcid) 20 mg DAILY PO Last administered on 03/19/16 09:46; Admin Dose 20 MG; Start 03/14/16 at 09:00 Morphine Sulfate (morphine) 2 mg Q4H PRN IV pain Last administered on 03/15/16 21:04; Admin Dose 2 MG; Start 03/14/16 at 06:00 Docusate Sodium (Colace) 100 mg BID PO Last administered on 03/18/16 08:15; Admin Dose 100 MG; Start 03/14/16 at 09:00 Acetaminophen (Tylenol Tab) 650 mg Q6H PRN PO PAIN AND OR ELEVATED TEMP; Start 03/14/16 at 06:30 Acetaminophen/ Hydrocodone Bitart 1 tab 1 tab Q4H PRN PO PAIN; Start 03/14/16 at 14:00 Meropenem/Sodium Chloride (Merrem/NS) 100 ml @ 200 mls/hr Q8 IVPB Last administered on 03/19/16 14:57; Admin Dose 200 MLS/HR; Start 03/18/16 at 14:00 MINGO GAITAN MD Mar 19, 2016 18:19
[2016-03-19 20:10] VITALS: BP 123/62; RESP 16
--- NOTE | 2016-03-19 20:57 | RADRPT ---
PROCEDURE: CT scan of the abdomen and pelvis without IV contrast. CLINICAL INDICATION: Diverticulitis. TECHNIQUE: Thin section axial, coronal and sagittal images were performed through the abdomen and pelvis without contrast Radiation Dose: CTDI 17:29 mGy and DLP: 884.06 mGy-cm One of the following dose reduction techniq ues were utilized: Automated dense exposure control, adjustment of the mA and/or kV according to pa tient's size, use of iterative reconstruction technique COMPARISON: None FINDINGS: CT abdomen: Atelectasis or consolidation in the lingula and left lung base with mild volume loss. The unenhance d visualized heart and pericardium are unremarkable with atherosclerotic calcification of the aorta and coronary arteries. Mild right base dependent atelectasis. Cholelithiasis without wall thickening or pericholecystic fluid. The liver, spleen, adrenal glands, and pancreas are normal in size and attenuation without focal lesion. No evidence of intrahepatic b iliary ductal dilatation is identified. Normal appearance of the cherise hepatis. The kidneys are normal in size and contour without parenchymal abnormality. Left perinephric soft ti ssue stranding and scarring. No obstructive uropathy. Normal caliber abdominal aorta. Aortic vascular calcification. No retroperitoneal or mesenteric lymp hadenopathy or ascites. Normal caliber bowel without evidence of obstruction. Normal appearance of the bowel mesenteric. CT pelvis: Normal appendix. Sigmoid diverticulosis without evidence of diverticulitis. Calcified uterine fibro ids. Small periumbilical ventral hernia containing omental fat measuring approximately 2 cm in grea test dimension. No normal caliber bowel. No pelvic sidewall lymphadenopathy or ascites. No acute inflammatory proc ess. The bladder and remaining intrapelvic contents are unremarkable. Bones: No lytic or blastic osseous lesion. Marked multilevel degenerative lumbar endplate spurring and facet joint arthropathy with levoscoliosis and multilevel disk desiccation and endplate degenera tive changes IMPRESSION: 1. No acute intra-abdominal or intrapelvic abnormality. 2. Cholelithiasis. 3. Colonic diverticulosis without diverticulitis. 4. Atherosclerotic calcification of the aorta. 5. Left base and lingular atelectasis or consolidation. RPTAT:AAJJ J Port, Physician Date Time Electronically viewed and signed by Katie Dewey Physician on 03/19/2016 20:56 WILDA/
--- NOTE | 2016-03-19 21:20 | RADRPT ---
PROCEDURE: CT of the left knee CLINICAL INDICATION: Knee pain, swelling, concern for abscess TECHNIQUE: Axial images through the left knee without IV contrast. Coronal and sagittal reformat s. Images were interpreted at an independent PACS workstation. CTDI 81.96 mGy DLP 1725.57 mGy-cm One or more of the following dose reduction techniques were used: Automated exposure control Adjustment of the mA and / or kV according to patient size Use of iterative reconstruction technique. COMPARISON: Radiographs of the left knee dated March 13, 2016 and radiographs of the left knee December 03, 2014 . Ultrasound of the left lower extremity March 17, 2016. FINDINGS: The patient is status post total knee arthroplasty, in anatomic alignment. The bones are osteopenic . There is no definite acute fracture noting limitations due to metallic artifact and osteopenia. There is anterior soft tissue swelling and a skin defect near extending to bone overlying the patell a (sagittal 34). There is also some thinning and partial dehiscence along the anterolateral aspect of the proximal tibial metaphysis (axial 52). Osteomyelitis of the anterior patella as well as the anterior proximal tibia difficult to exclude on CT. There is a small to moderate-sized knee joint effusion with synovitis, a nonspecific finding, along with some gas in this region which may be related to the previous aspiration.. There is also made o f what appears to be a small amount of fluid tracking superiorly along the lateral aspect of the dis zurdo quadriceps tendon (axial 1) at the edge of the field of view. This could be some extension of j oint fluid though intramuscular fluid collection difficult to exclude. There are vascular calcifications. Note is made of prior muscle tissue wrapping around the proximal medial tibial metaphysis that may be related to a previous surgery. This appears to originate from the medial gastrocnemius muscle. There is subcutaneous soft tissue swelling. IMPRESSION: 1. Right knee total arthroplasty without evidence of periprosthetic fracture, noting osteopenia and metallic artifact which somewhat limits this evaluation. 2. Anterior skin defect over the patella nearly extending to bone , such that osteomyelitis at this location is difficult to exclude. There is also some cortical thinning and partial dehiscence galo g the anterolateral aspect of the proximal tibial metaphysis, with osteomyelitis not excluded at thi s location. Recommend correlation with previous operative note. 3. Small to moderate sized knee joint effusion with intra-articular gas which may be related to the recent aspiration. 4. Small amount of fluid tracking superiorly into the distal quadriceps tendon and myotendinous francia ction at the edge of the field of view. 5. Postoperative changes along the medial aspect of the proximal tibial metaphysis with transpositi on of a portion of the medial gastrocnemius along the medial/anterior aspect of the proximal tibia. 6. Subcutaneous soft tissue swelling without discrete subcutaneous fluid collection identified. RPTAT: HSRK .Skinny Sagastume MD, MD Date Time Electronically viewed and signed by .Skinny Sagastume MD, MD on 03/19/2016 21:19 .K/
[2016-03-20] MEDS: MEROPENEM 1 GM in SOD CHLORIDE 0.9% 100 ML IVPB SCH (05:24)
[2016-03-20 08:01] VITALS: BP 129/62; RESP 20
[2016-03-20] MEDS: DOCUSATE SODIUM 100 MG CAP PO SCH ×2 (09:00→20:43)
--- NOTE | 2016-03-20 09:00 | RADRPT ---
PROCEDURE: XR Chest. CLINICAL INDICATION: Check PICC line position. TECHNIQUE: Single frontal view. COMPARISON: 03/13/2016 FINDINGS: There is a right arm PICC line with the tip in the lower superior vena cava. The lungs are clear. The heart size is normal. There is calcification in the aorta consistent with atherosclerosis. There is no pleural effusion. There is no pneumothorax. IMPRESSION: 1. Satisfactory position of right arm PICC line. 2. Atherosclerosis. 3. Otherwise unremarkable study. RPTAT: QQ .Cole Stern MD, MD Date Time Electronically viewed and signed by .Cole Stern MD, MD on 03/20/2016 08:59 .R/
--- NOTE | 2016-03-20 09:01 | RADRPT ---
PROCEDURE: US guidance for PICC line CLINICAL INDICATION: PICC line placement TECHNIQUE: Multiple real-time images were acquired of the patient's arm utilizing a high resolutio n transducer. This was performed by the PICC line nurse for venous access. COMPARISON: None FINDINGS: Ultrasound guidance for PICC line placement. IMPRESSION: Ultrasound guidance for PICC line placement. RPTAT: AA .Aquiles Schneider MD, MD Date Time Electronically viewed and signed by .Aquiles Schneider MD, on 03/20/2016 09:01 .S/
--- NOTE | 2016-03-20 09:04 | CONS ---
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 WBC=15,360 with 95% neutrophils. ESR=81 on 03/16/2016. synovial fluid grew E. coli. - CT L knee report indicates possible osteomyelitis - CT abd/pel showed cholelithiasis; Pt has no GI/ symptoms - h/o complicated orthopedic repair of L TKR in the past - h/o seizure, on Keppra - h/o seizures from vancomycin - PCN allergy - rash when she took it 40 years ago - vancomycin allergy - per Pt, she had Sz of unclear etiology and was informed by her providers at that time that it might be caused by vancomycin Problems: Additional Assessment/Plan recommendations - I recommend I&D of L knee if possible - d/c meropenem; start IV ciprofloxacin 400mg q12hrs, I recommend 6 weeks. After that, Pt may benefit from long-term antibiotic for chronic suppression - I recommend weekly CBC, CMP and ESR while Pt's on antibiotic - I discussed the management with Pt and her RN Consultation Date/Type/Reason Admit Date/Time Mar 14, 2016 at 03:26 Initial Consult Date 03/14/16 Type of Consultation: Infectious Diseases 24 HR Interval Summary Constitutional: no complaints Detailed Summary Eyes: no complaints ENT: no complaints Respiratory: no complaints Cardiovascular: no complaints Gastrointestinal: no complaints Genitourinary: other (FC) Musculoskeletal: swelling (L knee (chronic)) Neurologic: no complaints Exam/Review of Systems Vital Signs Vitals Vital Signs Date Time Temp Pulse Resp B/P Pulse Ox O2 Delivery O2 Flow Rate FiO2 03/20/16 08:01 98.1 102 20 129/62 95 Intake and Output 03/19/16 03/19/16 03/20/16 15:00 23:00 07:00 Intake Total 200 ml 1360 ml 580 ml Output Total 1100 ml 650 ml Balance 200 ml 260 ml -70 ml Exam Constitutional: alert, well developed Psych: no complaints Head: atraumatic, normocephalic Eyes: nl conjunctiva, nl lids ENMT: nl external ears & nose Neck: supple Genitourinary - Female: other (FC) Musculoskeletal: swelling (L knee) Neurological: nl speech Skin: other (scabs) Results Result Diagram: 03/17/16 0430 03/16/16 0511 Medications Medications Current Medications Allopurinol (Zyloprim) 200 mg DAILY PO Last administered on 03/19/16 09:46; Admin Dose 200 MG; Start 03/14/16 at 09:00 Amlodipine Besylate (Norvasc) 2.5 mg DAILY PO Last administered on 03/19/16 09: 47; Admin Dose 2.5 MG; Start 03/14/16 at 09:00 Levetiracetam (Keppra) 1,000 mg BID PO Last administered on 03/19/16 21:35; Admin Dose 1,000 MG; Start 03/14/16 at 09:00 Famotidine (Pepcid) 20 mg DAILY PO Last administered on 03/19/16 09:46; Admin Dose 20 MG; Start 03/14/16 at 09:00 Morphine Sulfate (morphine) 2 mg Q4H PRN IV pain Last administered on 03/15/16 21:04; Admin Dose 2 MG; Start 03/14/16 at 06:00 Docusate Sodium (Colace) 100 mg BID PO Last administered on 03/19/16 21:35; Admin Dose 100 MG; Start 03/14/16 at 09:00 Acetaminophen (Tylenol Tab) 650 mg Q6H PRN PO PAIN AND OR ELEVATED TEMP; Start 03/14/16 at 06:30 Acetaminophen/ Hydrocodone Bitart 1 tab 1 tab Q4H PRN PO PAIN; Start 03/14/16 at 14:00 Meropenem/Sodium Chloride (Merrem/NS) 100 ml @ 200 mls/hr Q8 IVPB Last administered on 03/20/16 05:24; Admin Dose 200 MLS/HR; Start 03/18/16 at 14:00 SIOBHAN BATES M.D. Mar 20, 2016 09:04
[2016-03-20] MEDS: FAMOTIDINE 20 MG TAB PO SCH (09:36)
[2016-03-20] MEDS: ALLOPURINOL 100 MG TAB PO SCH (09:37)
[2016-03-20] MEDS: AMLODIPINE 2.5 MG TAB PO SCH (09:37)
[2016-03-20] MEDS: LEVETIRACETAM 500 MG TAB PO SCH ×2 (09:37→20:44)
[2016-03-20] MEDS: CIPROFLOXACIN 400MG/D5W 200 ML IVPB SCH ×2 (09:44→22:34)
[2016-03-20] MEDS: ONDANSETRON 4 MG INJ IV PRN (19:00)
[2016-03-20] MEDS ORDERED: TRIMETHOBENZAMIDE 100 MG/ML VIAL IM PRN (19:00)
[2016-03-20 19:45] VITALS: BP 125/60; RESP 20
[2016-03-20] MEDS: LOPERAMIDE 2 MG CAP PO PRN (20:44)
--- NOTE | 2016-03-20 23:25 | PN ---
Date/Time of Note Date/Time of Note DATE: 03/20/16 TIME: 23:23 Assessment/Plan VTE Prophylaxis VTE Prophylaxis Intervention: SCD's Lines/Catheters IV Catheter Type (from Nrsg): PICC Line Central line still needed: Yes Urinary Cath still in place: Yes Reason Cath still needed: other (indicate) Assessment/Plan Assessment/Plan IMPRESSION 1. Mechanical fall. 2. Left knee superficial infection/ pain with history of replacement/ prosthetic mesh placement/chronic pain. 3. Seizure disorder. 4. Systemic inflammatory response syndrome. 5. History of gout. 6. Hypertension. 7. Degenerative joint disease. PLAN will f/u result of arthrocentesis. cont Abx ID managing Cont current medical mgmt and pain meds as needed cont Physical therapy PICC line placed DISP: discharge to SNF tomorrow Subjective 24 Hr Interval Summary Free Text/Dictation c/o intermittent left knee pain Exam/Review of Systems Vital Signs Vitals Vital Signs Date Time Temp Pulse Resp B/P Pulse Ox O2 Delivery O2 Flow Rate FiO2 03/20/16 19:45 97.7 84 20 125/60 98 Intake and Output 03/19/16 03/19/16 03/20/16 15:00 23:00 07:00 Intake Total 200 ml 1360 ml 580 ml Output Total 1100 ml 650 ml Balance 200 ml 260 ml -70 ml Exam Constitutional: alert, oriented Head: atraumatic, normocephalic Eyes: EOMI, PERRL Neck: non-tender, supple Respiratory: clear to auscultation, normal air movement Cardiovascular: other (tachycardic with regular rhythm) Gastrointestinal: non-tender, soft Extremities: other (left knee with eythema and warmth. non tender) Results Result Diagram: 03/17/16 0430 03/16/16 0511 Results 24 hrs Laboratory Tests Test 03/20/16 05:10 Erythrocyte Sedimentation Rate 103 H Medications Medications Current Medications Allopurinol (Zyloprim) 200 mg DAILY PO Last administered on 03/20/16 09:37; Admin Dose 200 MG; Start 03/14/16 at 09:00 Amlodipine Besylate (Norvasc) 2.5 mg DAILY PO Last administered on 03/20/16 09: 37; Admin Dose 2.5 MG; Start 03/14/16 at 09:00 Levetiracetam (Keppra) 1,000 mg BID PO Last administered on 03/20/16 20:44; Admin Dose 1,000 MG; Start 03/14/16 at 09:00 Famotidine (Pepcid) 20 mg DAILY PO Last administered on 03/20/16 09:36; Admin Dose 20 MG; Start 03/14/16 at 09:00 Morphine Sulfate (morphine) 2 mg Q4H PRN IV pain Last administered on 03/15/16 21:04; Admin Dose 2 MG; Start 03/14/16 at 06:00 Docusate Sodium (Colace) 100 mg BID PO Last administered on 03/19/16 21:35; Admin Dose 100 MG; Start 03/14/16 at 09:00 Acetaminophen (Tylenol Tab) 650 mg Q6H PRN PO PAIN AND OR ELEVATED TEMP; Start 03/14/16 at 06:30 Acetaminophen/ Hydrocodone Bitart 1 tab 1 tab Q4H PRN PO PAIN; Start 03/14/16 at 14:00 Ciprofloxacin/ Dextrose (Cipro Ivpb) 200 ml @ 200 mls/hr Q12 IVPB Last administered on 03/20/16 22:34; Admin Dose 200 MLS/HR; Start 03/20/16 at 10:00 IV Flush (NS 10 ml) 10 ml PRN PRN IV IV PROTOCOL; Start 03/20/16 at 15:00 Ondansetron HCl (Zofran Inj) 4 mg Q6H PRN IV NAUSEA AND/OR VOMITING Last administered on 03/20/16 19:00; Admin Dose 4 MG; Start 03/20/16 at 18:55 Trimethobenzamide HCl (Tigan) 200 mg Q6H PRN IM NAUSEA AND/OR VOMITING; Start 03/20/16 at 19:00 Loperamide HCl (Imodium Cap) 2 mg QID PRN PO DIARRHEA Last administered on 20:44; Admin Dose 2 MG; Start 03/20/16 at 20:00 MINGO GAITAN MD Mar 20, 2016 23:25
[2016-03-21 08:10] VITALS: BP 134/95; RESP 18
[2016-03-21] MEDS: CIPROFLOXACIN 400MG/D5W 200 ML IVPB SCH (08:34)
[2016-03-21] MEDS: ALLOPURINOL 100 MG TAB PO SCH (08:35)
[2016-03-21] MEDS: DOCUSATE SODIUM 100 MG CAP PO SCH (08:35)
[2016-03-21] MEDS: LEVETIRACETAM 500 MG TAB PO SCH (08:35)
[2016-03-21] MEDS: FAMOTIDINE 20 MG TAB PO SCH (08:35)
[2016-03-21] MEDS: LOPERAMIDE 2 MG CAP PO PRN (08:36)
[2016-03-21] MEDS: ONDANSETRON 4 MG INJ IV PRN ×2 (08:36→16:06)
[2016-03-21] MEDS: AMLODIPINE 2.5 MG TAB PO SCH (08:36)
--- NOTE | 2016-03-21 11:01 | CONS ---
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 WBC=15,360 with 95% neutrophils. ESR=81 on 03/16/2016. synovial fluid grew E. coli. superficial swab grew E. coli, klebsiella and corynebacterium. The latter two are probable colonizers because they did not grow in the synovial fluid and the growth was scant (kleb) and rare (corynebacteria) from the skin swab - CT L knee report indicates possible osteomyelitis - CT abd/pel showed cholelithiasis; Pt has no GI/ symptoms - h/o complicated orthopedic repair of L TKR in the past - h/o seizure, on Keppra - h/o seizures from vancomycin - PCN allergy - rash when she took it 40 years ago - vancomycin allergy - per Pt, she had Sz of unclear etiology and was informed by her providers at that time that it might be caused by vancomycin Problems: Additional Assessment/Plan recommendations - I recommend IV ciprofloxacin for 6 weeks. After that, Pt may benefit from long -term antibiotic for chronic suppression - klebsiella and corynebacterium are likely colonizers as they only grew a scant /rare amount on the swab of the skin of her knee, but not out of the synovial fluid. klebdsiella is sensitive to cipro. I will give her 5 days of clindamycin to cover cellulitis/colonization of the knee due to corynebacteria (note: Pt took two days of daptomycin) - I recommend weekly CBC, CMP and ESR while Pt's on antibiotic - contact isolation because Pt's [employer] informed me that at klebsiella strains are defined ESBL positive as they are resistant to newer generation cephalosporines - f/u with Dr. Hidalgo, her regular ID physician - I discussed the management with Pt, her RN, [employer]. Informed Dr. [place] too total time I took to care for this Pt today was from 1040 to 1125 Consultation Date/Type/Reason Admit Date/Time Mar 14, 2016 at 03:26 Initial Consult Date 03/14/16 Type of Consultation: Infectious Diseases 24 HR Interval Summary Constitutional: no complaints Detailed Summary Eyes: no complaints ENT: no complaints Respiratory: no complaints Cardiovascular: no complaints Gastrointestinal: no complaints Genitourinary: no complaints Musculoskeletal: no complaints Skin: no complaints Neurologic: no complaints Exam/Review of Systems Vital Signs Vitals Vital Signs Date Time Temp Pulse Resp B/P Pulse Ox O2 Delivery O2 Flow Rate FiO2 03/21/16 08:10 97.8 96 18 134/95 93 Intake and Output 03/20/16 03/20/16 03/21/16 15:00 23:00 07:00 Intake Total 800 ml 560 ml Output Total 1000 ml 600 ml Balance -200 ml -40 ml Exam Constitutional: alert, oriented, well developed Psych: nl mood/affect, no complaints Head: atraumatic, normocephalic Eyes: EOMI, nl conjunctiva, nl lids ENMT: nl external ears & nose, nl nasal mucosa & septum Neck: supple Musculoskeletal: swelling (L knee, chronic) Extremities: edema (LLE, chronic) Skin: No rash or lesions Results Result Diagram: 03/17/16 0430 Medications Medications Current Medications Allopurinol (Zyloprim) 200 mg DAILY PO Last administered on 03/21/16 08:35; Admin Dose 200 MG; Start 03/14/16 at 09:00 Amlodipine Besylate (Norvasc) 2.5 mg DAILY PO Last administered on 03/21/16 08: 36; Admin Dose 2.5 MG; Start 03/14/16 at 09:00 Levetiracetam (Keppra) 1,000 mg BID PO Last administered on 03/21/16 08:35; Admin Dose 1,000 MG; Start 03/14/16 at 09:00 Famotidine (Pepcid) 20 mg DAILY PO Last administered on 03/21/16 08:35; Admin Dose 20 MG; Start 03/14/16 at 09:00 Morphine Sulfate (morphine) 2 mg Q4H PRN IV pain Last administered on 03/15/16 21:04; Admin Dose 2 MG; Start 03/14/16 at 06:00 Docusate Sodium (Colace) 100 mg BID PO Last administered on 03/19/16 21:35; Admin Dose 100 MG; Start 03/14/16 at 09:00 Acetaminophen (Tylenol Tab) 650 mg Q6H PRN PO PAIN AND OR ELEVATED TEMP; Start 03/14/16 at 06:30 Acetaminophen/ Hydrocodone Bitart 1 tab 1 tab Q4H PRN PO PAIN; Start 03/14/16 at 14:00 Ciprofloxacin/ Dextrose (Cipro Ivpb) 200 ml @ 200 mls/hr Q12 IVPB Last administered on 03/21/16 08:34; Admin Dose 200 MLS/HR; Start 03/20/16 at 10:00 IV Flush (NS 10 ml) 10 ml PRN PRN IV IV PROTOCOL; Start 03/20/16 at 15:00 Ondansetron HCl (Zofran Inj) 4 mg Q6H PRN IV NAUSEA AND/OR VOMITING Last administered on 03/21/16 08:36; Admin Dose 4 MG; Start 03/20/16 at 18:55 Trimethobenzamide HCl (Tigan) 200 mg Q6H PRN IM NAUSEA AND/OR VOMITING; Start 03/20/16 at 19:00 Loperamide HCl (Imodium Cap) 2 mg QID PRN PO DIARRHEA Last administered on 08:36; Admin Dose 2 MG; Start 03/20/16 at 20:00 SIOBHAN BATES M.D. Mar 21, 2016 11:01
--- NOTE | 2016-03-21 13:40 | PDOCDIS ---
Discharge Instructions CONDITION Patient Condition: Stable HOME CARE INSTRUCTIONS: Diet Instructions: Low Fat /Cholesterol ACTIVITY: Activity Restrictions: Slowly Increase Activity Partial Weight Bearing FOLLOW UP/APPOINTMENTS Appointments Follow-up with your orthopedic Surgeon and primary care Doctor MINGO GAITAN MD Mar 21, 2016 13:40
[2016-03-21] MEDS ORDERED: CLINDAMYCIN 300 MG CAP PO SCH (14:00)
== END 2016-03-21 16:20 | DRG 559 ==
LOC: E/R 20:52 → MS2 03-14 03:26
PROVIDERS: ADMIT Family Medicine; ATTEND Family Medicine
PROC: 0S9D3ZX Drainage of Left Knee Joint, Percutaneous Approach, Diagnostic (ICD-10-PCS; principal; 2016-03-17)
PROC: 02HV33Z Insertion of Infusion Device into Superior Vena Cava, Percutaneous Approach (ICD-10-PCS; 2016-03-20)
DX: T84.54XA Infection and inflammatory reaction due to internal left knee prosthesis, initial encounter (principal); A41.9 Sepsis, unspecified organism; M00.9 Pyogenic arthritis, unspecified; T81.30XA Disruption of wound, unspecified, initial encounter; N39.0 Urinary tract infection, site not specified; L03.116 Cellulitis of left lower limb; M86.9 Osteomyelitis, unspecified; B96.20 Unspecified Escherichia coli [E. coli] as the cause of diseases classified elsewhere; B96.1 Klebsiella pneumoniae [K. pneumoniae] as the cause of diseases classified elsewhere; Z16.12 Extended spectrum beta lactamase (ESBL) resistance; G40.909 Epilepsy, unspecified, not intractable, without status epilepticus; M10.9 Gout, unspecified; I10 Essential (primary) hypertension; S89.82XA Other specified injuries of left lower leg, initial encounter; W50.2XXA Accidental twist by another person, initial encounter; Y92.9 Unspecified place or not applicable; Z96.653 Presence of artificial knee joint, bilateral; Z79.2 Long term (current) use of antibiotics
CPT/HCPCS: 36569; 71010; 73562; 73700; 74176; 76937; 80048; 80053; 81001; 81003; 82550; 82553; 83036; 83605; 83735; 84100; 84443; 84484; 85025; 85610; 85651; 85730; 86140; 87040; 87070; 87086; 87102; 87116; 89051; 93005; 93965; 97110; 97116; 97162; 97530; J0696; J0744; J1650; J2185; J2270; J2405; J3370; J7030